=== PATIENT | male | born 1965 | race American Indian/Alaskan Native ===

== ENCOUNTER 2018-08-16 01:19 | Inpatient (IN) | payer MEDICAID ==
[2018-08-16 01:25] VITALS: BMI 31.4
[2018-08-16 01:34] VITALS: O2SAT 98
--- NOTE | 2018-08-16 04:11 | PCM.BM ---
<Bret Alcantar - Last Filed: 08/16/18 04:08> Treatment Plan Problems - Problems identified on initial assessmt Auditory Hallucinations Date Initiated: 08/16/18 Time Initiated: 04:09 Assessment reference: NA Status: Active Hopelessness/Helplessness Date Initiated: 08/16/18 Time Initiated: 04:09 Assessment reference: NA Status: Active Ineffective Coping Date Initiated: 08/16/18 Time Initiated: 04:09 Assessment reference: NA Status: Active Altered Sleep Patterns Date Initiated: 08/16/18 Time Initiated: 04:10 Assessment reference: NA Status: Active Social Isolation Date Initiated: 08/16/18 Time Initiated: 04:10 Assessment reference: NA Status: Active Treatment assets and liabiliti Patient Assests: adapts well, cooperative, insightful, ADL independent, negotiates basic needs, cognitively intact Patient Liabilities: live alone, financial problems, poor support system, substance abuse, medical problems - Milieu Protocol Maintain good personal hygiene: daily Encourage regular showers, daily Remind patient to perform daily oral care, daily Assist patient to perform ADL's Conduct patient checks and document Observation sheet: Q15 minutes Maintain personal safety: every shift Educate patient to report safety concerns to staff, every shift Monitor environment for contraband/sharps Medication safety: Monitor for expected outcome, potential side effects: every shift, Assess barriers to learning: every shift, Assess readiness for medication education: every shift Discharge/Continuing Care - Education Needs Education Needs: Patient Medication, Patient Diagnosis/Disease Process, Patient Coping Skills, Patient Community resources, Patient Activities of Daily Living, Patient Nutrition, Patient Health Practices/Safety, Patient Personal Hygiene/Grooming, Patient Aftercare Safety Plan - Discharge Discharge Criteria: Tolerates medication w/o severe side effects, Free of Suicidal thoughts, Free of paranoid thoughts, Normal sleep pattern, Ability to care for self, No longer exhibiting s/s of withdrawal, Reduction of target symptoms <Khadra Dudley - Last Filed: 08/16/18 14:08> - Diagnosis (1) Schizoaffective disorder Status: Acute Interventions: 08/16/18 14:08 Psychoeducation/psychotherapy Psychopharmacology/adjustment of medications as needed/ monitoring possible side effects Evaluate pt on daily basis Compliance with medications and follow up appointments Long acting medication if pt is noncompliant with pill form Suicide and homicide risk assessment and prevention, coping strategies, safety plan Relapse prevention Reduction of symptoms Improve functional status Possible assertive community treatment Cognitive behavioral therapy Family involvement Possible social skill training as outpatient (2) Alcohol use disorder Status: Acute Interventions: 08/16/18 14:08 Monitoring withdrawal symptoms Medical detoxification Pharmacotherapy for alcohol/benzos/opioid dependence Maintaining sobriety Relapse prevention Possible rehabilitation Motivational interviewing 12-step programs: AA meetings (3) Sleep apnea Status: Acute Interventions: 08/16/18 14:09 pulmonology consult medical consult med management Lab work as needed (CBC, CMP, TSH, free T4, UA, Urine test for females as needed) CXR as needed EKG Physical therapy evaluation as needed <Farrah Velásquez - Last Filed: 08/16/18 16:21>
[2018-08-16 08:57] LABS: GLUCOSE,FASTING 110 mg/dL (65-110); HDL CHOLESTEROL 40 mg/dL (29-60)
[2018-08-16 09:09] LABS: LDL CHOLESTEROL 112 mg/dL (0-129)
--- NOTE | 2018-08-16 14:07 | PCM.PSYCH ---
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 History of Present Illness and Precipitating Events: 53 year old male presents to the ED for evaluation of suicidal ideation, alcohol withdrawal. Patient is noncompliant with his psych medications for the past 2 days. Patient reports his last drink was prior to come to the hospital, used marijuana as well "not that often". Patient does not have a specific plan,has been hospitalized at [facility] multiple times for psychiatry and detox admissions. Patient's last hospitalization was 05/2018. Patient was transferred to [facility] because [facility] did not have any beds available. Patient requires further evaluation and stabilization, observation, higher level of care. Patient was seen today at the treatment team meeting, patient presented with poor personal hygiene, has upper extremity tremors, was observed swelling. Fair ADLs. Patient reported that he started to hear voices, relapse on alcohol for the past 3 weeks and was drinking about 1/2 pint of alcohol daily. Patient reported that she was hearing voices, denied command type hallucinations, reported suicidal ideation with no clear plan. Patient presented to be guarded and paranoid. Patient denies ever being abused in his life. Past psychiatric history: More than 10 psychiatric admissions, patient reported suicidal attempt in [id number] by overdosing on pills, patient was in the ICU [facility], then was referred to the psychiatric inpatient unit. Prior to this hospitalization patient contacted his counselor from [facility] when when he was in distress. Patient reports seeing psychiatrist at [facility] outpatient mental health clinic. Patient reports smoking marijuana "not very often." Patient reports smoking 1/2 pk of cigarettes per day. Counseling provided, patient refused Nicotine patch. Patient reports having sleep apnea and uses a CPAP machine, as per staff patient was snoring loudly (will call pulmonology and MD consult) HTN, high cholesterol. Patient reports his goal is to "get better." Patient reports hx of emotional abuse. Family history is unknown pt was on the following medications: Abilify 30 mg daily Lipitor 20 mg daily BuSpar 10 mg 3 times daily Lexapro 20 mg daily Neurontin 300 mg 3 times a day Seroquel 500 mg at the nighttime as per patient he was in the process of tapering down off Seroquel and titrating up Abilify Flomax 0.4 mg at the nighttime Trazodone 100 mg at the nighttime This junior copywriter will add folic acid, multivitamins, thiamine Lab Results 08/16/18 08:00: TSH 3rd Generation 1.32 08/16/18 08:00: Fasting Glucose 110, Triglycerides 205 H, Cholesterol 177, LDL Cholesterol Direct 112, HDL Cholesterol 40 Vital Signs Temp Pulse Resp BP Pulse Ox 08/16/18 08:46 129/61 08/16/18 07:24 97.7 F 60 20 129/61 08/16/18 01:58 98.2 F 87 18 135/89 98 08/16/18 01:33 97.9 F 89 18 151/96 H 98 The patient failed the outpatient lower level of care: Yes Current Medications: Active Medications Generic Name Dose Route Start Last Admin Trade Name Freq PRN Reason Stop Dose Admin Amlodipine Besylate 10 mg 08/16/18 08:00 Norvasc PO DAILY LUPE Aripiprazole 30 mg 08/16/18 08:00 Abilify PO DAILY LUPE Protocol Atorvastatin Calcium 20 mg 08/16/18 08:00 Lipitor PO DAILY LUPE Buspirone HCl 10 mg 08/16/18 08:00 Buspar PO TID LUPE Protocol Escitalopram Oxalate 20 mg 08/16/18 08:00 Lexapro PO DAILY LUPE Gabapentin 300 mg 08/16/18 08:00 Neurontin PO TID LUPE Protocol Lorazepam 2 mg 08/16/18 02:29 08/16/18 02:52 Ativan PO 2 mg Q6 PRN Administration alcohol withdrawal symptoms Protocol Quetiapine Fumarate 500 mg 08/16/18 22:00 Seroquel PO HS LUPE Protocol Tamsulosin HCl 0.4 mg 08/16/18 22:00 Flomax PO HS LUPE Trazodone HCl 100 mg 08/16/18 02:29 08/16/18 02:52 Desyrel PO 100 mg HS PRN Administration Insomnia Trazodone HCl 100 mg 08/16/18 22:00 Desyrel PO HS LUPE Present on Admission - Present on Admission Any Indicators Present on Admission: No Review of Systems - Review of Systems Systems not reviewed;Unavailable: Acuity of Condition - Constitutional Constitutional: As Per HPI - EENT Eyes: As Per HPI Ears: As Per HPI Nose/Mouth/Throat: As Per HPI - Cardiovascular Cardiovascular: As Per HPI - Respiratory Respiratory: As Per HPI - Gastrointestinal Gastrointestinal: As Per HPI - Genitourinary Genitourinary: As Per HPI - Reproductive: Male Reproductive:Male: As Per HPI - Musculoskeletal Musculoskeletal: As Per HPI - Integumentary Integumentary: As Per HPI - Neurological Neurological: As Per HPI - Psychiatric Psychiatric: As Per HPI - Endocrine Endocrine: As Per HPI - Hematologic/Lymphatic Hematologic: As Per HPI Past Patient History - Past Psychiatric History Previous Treatment History: Inpatient Prior Professional Help: See HPI Prior Psychiatric Treatment: See HPI At what hospital: See HPI Duration: See HPI Nature of Treatment: See HPI Explanation of prior treatment: See HPI - PSYCHIATRIC Hx Anxiety: Yes Hx Bipolar Disorder: Yes Hx Depression: Yes Hx Schizophrenia: Yes Hx Substance Use: Yes - CARDIAC Hx Hypertension: Yes - PULMONARY Hx Sleep Apnea: Yes - NEUROLOGICAL Hx Seizures: Yes (from alcohol withdrawals) - RENAL Hx Chronic Kidney Disease: No - ENDOCRINE/METABOLIC Other/Comment: "pre diabetes" - HEMATOLOGICAL/ONCOLOGICAL Hx Blood Disorders: No - INTEGUMENTARY Hx Dermatological Problems: No - MUSCULOSKELETAL/RHEUMATOLOGICAL Hx Osteoarthritis: Yes - GASTROINTESTINAL Hx Diverticulitis: Yes Hx Gastritis: Yes - GENITOURINARY/GYNECOLOGICAL Hx Prostate Problems: Yes (BPH) - SURGICAL HISTORY Hx Surgeries: Yes Hx Cholecystectomy: Yes Hx Orthopedic Surgery: Yes - ANESTHESIA Hx Anesthesia: Yes - Medical/Surgical History Reviewed & confirmed: by al Meds Allergies/Adverse Reactions: Allergies Allergy/AdvReac Type Severity Reaction Status Date / Time No Known Allergies Allergy Verified 08/16/18 02:28 Mental Status Examination - Personal Presentation Personal Presentation: Looks stated age - Affect Affect: Flat - Motor Activity Motor Activity: Calm - Reliability in Providing Information Reliability in Providing Information: Poor, due to alteration in thoughts, Poor, due to altered mood - Speech Speech: Disorganized (mildly) - Mood Mood: Depressed, Anxious - Formal Thought Process Formal Thought Process: Hallucinations, Delusions, Paranoia - Hallucinations/Delusions Hallucinations: Auditory Delusions: Persecution - Obsessions/Compulsions Obsessions: None Compulsions: None - Cognitive Functions Orientation: Person, Place, Situation Sensorium: Alert Abstract Thinking: [place] Estimate of Intelligence: Below average Judgement: Intact, as evidence by: Insight regarding need for hospitalization - Risk Risk: Suicidal, Self-mutilation, Diminished functioning - Strength & Assets Inventory Strength & Assets Inventory: Cooperative (pt is not homeless, not agitated, good physical health) - Limitations Limitations: Living alone, Other (alcohol abuse/ dependence) Psychiatric Physical Exam - Physical Exam Reviewed and confirmed: Emergency Department Physical Exam Results - Vital Signs Recent Vital Signs: Last Vital Signs Temp 97.7 F 08/16/18 07:24 Pulse 60 08/16/18 07:24 Resp 20 08/16/18 07:24 BP 129/61 08/16/18 07:24 Pulse Ox 98 08/16/18 01:58 - EKG Data EKG Interpreted by: ER Physician DSM Plan - DSM 5 DSM 5 Diagnosis: Schizoaffective disorder Alcohol use disorder Rule out alcohol withdrawal Marijuana abuse - Recommended/Plan of Treatment Treatment Recommendations and Plan of Treatment: Milieu/structure/supportive therapy SW consultation for discharge plan and social issues Med management Abilify 30 mg daily resumed, with the plan to titrate it up Lipitor 20 mg daily BuSpar 10 mg 3 times daily resumed for anxiety Lexapro 20 mg daily resumed for depression and anxiety Neurontin 300 mg 3 times a day for mood stabilization Seroquel 500 mg at the nighttime as per patient he was in the process of tapering down off Seroquel and titrating up Abilify Flomax 0.4 mg at the nighttime Trazodone 100 mg at the nighttime for depression/ anxiety This junior copywriter will add folic acid, multivitamins, thiamine Family involvement Follow up on labs Will monitor closely Pt was educated about risk/benefits and alternatives of medications, coping strategies (safety plan, suicide prevention), relapse prevention, importance of follow up with psychiatrist and therapist, stay away from drugs/alcohol/smoking Projected ELOS: 7 days Prognosis: fair Discharge Plan and Discharge Criteria: pt will be less psychotic, will pose no imminent danger to self or others - Tobacco Cessation Tobacco Use Status for the last 30 days: Heavy User(>=5 cigs &/or cigars/pipes daily) Tobacco Use Treatment Practical Counseling Provided: Yes Tobacco Use Treatment FDA-Approved Cessation Medication Provided: No Reason for not providing: Patient refused tobacco cessation medication - Alcohol or Substance Abuse Does the patient have an Alcohol or Substance Abuse Disorder: Yes Initial Psych Certification - Initial Certification I certify that the inpatient psychiatric facility admission was medically necessary for either: Treatment which could reasonbly be expected to improve pt's condition I estimate of hospitalization is necessary for proper treatment of the patient: 7 Unit of Time: Days My plans for post-hospital care for this patient are: Possible rehab, versus dual diagnosis program, AA meetings
[2018-08-16] MEDS: Multivitamin With Minerals Tab PO SCH (17:54)
--- NOTE | 2018-08-16 23:59 | ED PDOC ---
Arrival/HPI - General Chief Complaint: Psychiatric Evaluation Time Seen by Provider: 08/16/18 01:20 - History of Present Illness Narrative History of Present Illness (Text): 08/16/18 23:58 pt presents as transfer for [facility] admission from [facility], no medical complaint. Past Medical History - Cardiac Hx Hypertension: Yes - Pulmonary Hx Sleep Apnea: Yes - Neurological Hx Seizures: Yes (from alcohol withdrawals) - Renal Hx Renal Disorder: No - Endocrine/Metabolic Other/Comment: "pre diabetes" - Hematological/Oncological Hx Blood Disorders: No - Integumentary Hx Dermatological Disorder: No - Musculoskeletal/Rheumatological Hx Osteoarthritis: Yes - Gastrointestinal Hx Diverticulitis: Yes Hx Gastritis: Yes - Genitourinary/Gynecological Hx Prostate Problems: Yes (BPH) - Psychiatric Hx Anxiety: Yes Hx Bipolar Disorder: Yes Hx Depression: Yes Hx Schizophrenia: Yes Hx Substance Use: Yes - Surgical History Hx Cholecystectomy: Yes Hx Orthopedic Surgery: Yes - Anesthesia Hx Anesthesia: Yes - Suicidal Assessment Suicide Risk Precautions: None Family/Social History Family/Social History: Unknown Family HX Smoking Status: Light Smoker < 10 Cigarettes Daily Hx Alcohol Use: Yes Frequency of alcohol use: Daily Hx Substance Use: Yes Allergies/Home Meds Allergies/Adverse Reactions: Allergies No Known Allergies Allergy (Verified 08/16/18 02:28) Home Medications: Home Meds Medication Instructions Recorded Confirmed Aripiprazole [Abilify] 30 mg PO DAILY 08/16/18 08/16/18 Atorvastatin [Lipitor] 20 mg PO DAILY 08/16/18 08/16/18 Escitalopram [Lexapro] 20 mg PO DAILY 08/16/18 08/16/18 Gabapentin [Neurontin] 300 mg PO TID 08/16/18 08/16/18 Quetiapine Fumarate [Seroquel] 500 mg PO HS 08/16/18 08/16/18 Tamsulosin [Flomax] 0.4 mg PO HS 08/16/18 08/16/18 amLODIPine [Norvasc] 10 mg PO DAILY 08/16/18 08/16/18 busPIRone [Buspar] 10 mg PO TID 08/16/18 08/16/18 traZODone [Desyrel] 100 mg PO HS 08/16/18 08/16/18 traZODone [Desyrel] 100 mg PO HS PRN 08/16/18 08/16/18 Review of Systems - Review of Systems Constitutional: Normal Eyes: Normal ENT: Normal Respiratory: Normal Cardiovascular: Normal Gastrointestinal: Normal Genitourinary Male: Normal Musculoskeletal: Normal Skin: Normal Neurological: Normal Endocrine: Normal Hemo/Lymphatic: Normal Psychiatric: Normal Physical Exam Vital Signs Temp Pulse Resp BP Pulse Ox 08/16/18 01:33 97.9 F 89 18 151/96 H 98 Temperature: Afebrile Blood Pressure: Normal Pulse: Regular Respiratory Rate: Normal Appearance: Positive for: Well-Appearing, Non-Toxic, Comfortable Pain Distress: None Mental Status: Positive for: Alert and Oriented X 3 - Systems Exam Head: Present: Atraumatic, Normocephalic Pupils: Present: PERRL Extroacular Muscles: Present: EOMI Conjunctiva: Present: Normal Mouth: Present: Moist Mucous Membranes Neck: Present: Normal Range of Motion Respiratory/Chest: Present: Clear to Auscultation, Good Air Exchange. No: Respiratory Distress, Accessory Muscle Use Cardiovascular: Present: Regular Rate and Rhythm, Normal S1, S2. No: Murmurs Abdomen: No: Tenderness, Distention, Peritoneal Signs Back: Present: Normal Inspection Upper Extremity: Present: Normal Inspection. No: Cyanosis, Edema Lower Extremity: Present: Normal Inspection. No: Edema Neurological: Present: GCS=15, CN II-XII Intact, Speech Normal Skin: Present: Warm, Dry, Normal Color. 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 - Medication Orders Current Medication Orders: Amlodipine Besylate (Norvasc) 10 mg PO DAILY [facility] Last Admin: 08/16/18 08:46 Dose: 10 mg MAR Blood Pressure Document 08/16/18 08:46 [facility] (Rec: 08/16/18 08:54 [facility] [id number]) Blood Pressure Blood Pressure (100/60-150/90) 129/61 Aripiprazole (Abilify) 30 mg PO DAILY [facility]; Protocol Last Admin: 08/16/18 08:43 Dose: 30 mg Re-Assess: Reassess Psych Meds Document 08/16/18 09:43 [facility] (Rec: 08/16/18 15:49 [facility] [id number]) Reassess Psych Med Effective Atorvastatin Calcium (Lipitor) 20 mg PO DAILY [facility] Last Admin: 08/16/18 08:43 Dose: 20 mg Buspirone HCl (Buspar) 10 mg PO TID [facility]; Protocol Last Admin: 08/16/18 17:55 Dose: 10 mg Re-Assess: Reassess Psych Meds Document 08/16/18 18:55 [facility] (Rec: 08/16/18 19:18 [place] [id number]) Reassess Psych Med Effective Escitalopram Oxalate (Lexapro) 20 mg PO DAILY [facility] Last Admin: 08/16/18 08:44 Dose: 20 mg Folic Acid (Folic Acid) 1 mg PO DAILY [facility] Last Admin: 08/16/18 17:54 Dose: 1 mg Gabapentin (Neurontin) 300 mg PO TID [facility]; Protocol Last Admin: 08/16/18 17:55 Dose: 300 mg Re-Assess: Reassess Psych Meds Document 08/16/18 18:55 [facility] (Rec: 08/16/18 19:18 [place] [id number]) Reassess Psych Med Effective Lorazepam (Ativan) 2 mg PO Q6 PRN; Protocol PRN Reason: alcohol withdrawal symptoms Last Admin: 08/16/18 02:52 Dose: 2 mg Behavioural Document 08/16/18 02:52 KM (Rec: 08/16/18 02:53 KM [id number]) Nonmedicinal Nonmedicinal Interventions Redirect Therapeutic Communication Behavior Behavior for Medication: Anxiety Re-Assess: Reassess Psych Meds Document 08/16/18 03:52 KM (Rec: 08/16/18 04:12 KM [id number]) Reassess Psych Med Effective Lorazepam (Ativan) 2 mg PO Q6H [facility]; Protocol Last Admin: 08/16/18 20:37 Dose: 2 mg Behavioural Document 08/16/18 20:37 EN (Rec: 08/16/18 20:37 EN [id number]) Maintenance Maintenance Dose Yes Multivitamins/Minerals (Therapeutic-M Tab) 1 tab PO DAILY [facility] Last Admin: 08/16/18 17:54 Dose: 1 tab Quetiapine Fumarate (Seroquel) 500 mg PO HS [facility]; Protocol Last Admin: 08/16/18 21:08 Dose: 500 mg Behavioural Document 08/16/18 21:08 EN (Rec: 08/16/18 21:09 EN [id number]) Maintenance Maintenance Dose Yes Tamsulosin HCl (Flomax) 0.4 mg PO HS [facility] Last Admin: 08/16/18 21:08 Dose: 0.4 mg Thiamine HCl (Vitamin B1 Tab) 100 mg PO DAILY [facility] Last Admin: 08/16/18 17:55 Dose: 100 mg Trazodone HCl (Desyrel) 100 mg PO HS PRN PRN Reason: Insomnia Last Admin: 08/16/18 02:52 Dose: 100 mg Trazodone HCl (Desyrel) 100 mg PO HS [facility] Last Admin: 08/16/18 21:08 Dose: 100 mg Disposition/Present on Arrival - Present on Arrival Any Indicators Present on Arrival: No History of DVT/PE: No History of Uncontrolled Diabetes: No Urinary Catheter: No History of Decub. Ulcer: No History Surgical Site Infection Following: None - Disposition Have Diagnosis and Disposition been Completed?: Yes Diagnosis: Schizoaffective disorder Disposition: HOSPITALIZED Disposition Time: 16:00 Patient Problems: Current Active Problems Problem Status Onset Schizoaffective disorder Acute Alcohol use disorder Acute Sleep apnea Acute Condition: STABLE
[2018-08-17 07:42] LABS: MEAN CELL VOLUME 83.4 fl (80.0-105.0); MEAN CORPUSCULAR HEMOGLOBIN 25.1 pg (25.0-35.0); MEAN CORPUSCULAR HGB CONC 30.1 g/dl (31.0-37.0); MEAN PLATELET VOLUME 10.3 fl (7.0-11.0); RBC 5.18 10^6/uL (3.5-6.1); RED CELL DISTRIBUTION WIDTH 13.3 % (11.5-14.5); WHITE BLOOD COUNT 8.3 10^3/uL (4.5-11.0)
[2018-08-17 07:56] LABS: ALB/GLOB RATIO 1.1 (1.1-1.8); ALBUMIN 4.1 g/dL (3.0-4.8); ALT/SGPT 8 U/L (7-56); AST/SGOT 19 U/L (17-59); BLOOD UREA NITROGEN 9 mg/dL (7-21); CALCIUM 8.9 mg/dL (8.4-10.5); GFR NON-AFRICAN AMERICAN > 60
--- NOTE | 2018-08-17 09:21 | PCM.PYCHPN ---
Psychiatric Progress Note - Psychiatric Progress Note Patient seen today, length of contact: 25 min Problems Identified/Issues Discussed: Patient is a 53 year old male who was transferred to [facility] after presenting to [facility] ED with suicidal ideation and alcohol withdrawal. Patient reported that he started to hear voices, relapsed on alcohol for the past 3 weeks and was drinking about 1/2 pint of alcohol daily. Patient was noncompliant with his psych medications for the 2 days prior to admission and reported that his last drink was before coming to the hospital. Patient also infrequently smokes marijuana. Patient has been hospitalized at [facility] multiple times for psychiatry and detox admissions. Patient's last hospitalization was 05/2018. Patient was transferred to [facility] because [facility] did not have any beds available. I reviewed recent notes and patient appears to improving slowly. He spends a lot of time in his room and still doesn't appear motivated to socialize or engage. His affect is sleepy, guarded and constricted during my introduction and questioning. Today he denies having any hallucinations but admits hearing voices "a few days ago". This is consistent with recent staff notes which describe patient's hallucinations as indistinct voices in a mall . Patient has been in control on the unit. He snores very loudly and will also involuntarily snore/snort at times during our conversation. Presently he denies any new concerns, discomfort or pain. States "the meds are working fine" and indicates he slept well last night. Diagnostic Results: Schizoaffective disorder Alcohol use disorder Rule out alcohol withdrawal Marijuana abuse Medication Change: No Medical Record Reviewed: Yes Mental Status Examination - Cognitive Function Orientation: Person, Place, Situation Attention: Poor Concentration: Poor Association: WNL Fund of Knowledge: Poor - Mood Mood: Depressed, Anxious - Affect Affect: Constricted, Flat - Speech Speech: Appropriate - Formal Thought Process Formal Thought Process: Hallucinations (denies currently ), Delusions, Paranoia - Suicidal Ideation Suicidal Ideation: No - Homicidal Ideation Homicidal Ideation: No Goal/Treatment Plan - Goal/Treatment Plan Progress Toward Problem(s) and Goals/Treatment Plan: * group, milieu and supportive tx * Titrate Abilify 30 mg po daily as Seroquel is being tapered from 500 mg po HS * Buspar 10 mg po TID * Lexapro 20 mg po daily * Neurontin 300 mg po TID * Ativan 2 mg po q6, taper as tolerated * Trazodone 100 mg po HS and 100 mg po HS prn * Patient reports smoking 1/2 pk of cigarettes per day. Counseling provided, patient refused Nicotine patch. * Vitals reviewed and noted below: Selected Entries 08/16/18 08/16/18 07:24 16:00 Temperature 97.7 F Pulse Rate 60 88 Respiratory 20 Rate Blood Pressure 129/61 135/87 * New weekend labs noted thus far Laboratory Results - last 24 hr 08/16/18 08/16/18 08/17/18 08:00 08:00 07:00 WBC 8.3 RBC 5.18 Hgb 13.0 L Hct 43.2 MCV 83.4 MCH 25.1 MCHC 30.1 L RDW 13.3 Plt Count 285 MPV 10.3 Sodium Potassium Chloride Carbon Dioxide Anion Gap BUN Creatinine Est GFR ( Amer) Est GFR (Non-Af Amer) Random Glucose Calcium Total Bilirubin AST ALT Alkaline Phosphatase Total Protein Albumin Globulin Albumin/Globulin Ratio TSH 3rd Generation 1.32 RPR Nonreactive 08/17/18 07:00 WBC RBC Hgb Hct MCV MCH MCHC RDW Plt Count MPV Sodium 142 Potassium 3.8 Chloride 106 Carbon Dioxide 28 Anion Gap 11 BUN 9 Creatinine 1.0 Est GFR ( Amer) > 60 Est GFR (Non-Af Amer) > 60 Random Glucose 117 H Calcium 8.9 Total Bilirubin 0.4 AST 19 ALT 8 Alkaline Phosphatase 76 Total Protein 7.6 Albumin 4.1 Globulin 3.6 Albumin/Globulin Ratio 1.1 TSH 3rd Generation RPR
[2018-08-17] MEDS: Multivitamin With Minerals Tab PO SCH (09:34)
[2018-08-17] MEDS ORDERED: Albuterol HFA 90 mcg/actuation (8 g) IH PRN (10:24)
--- NOTE | 2018-08-17 11:32 | CON ---
DATE: 08/17/2018 PULMONARY CONSULT NOTE REFERRING PHYSICIAN: Dr. Khadra Dudley. REASON FOR CONSULT: Sleep apnea. HISTORY OF PRESENT ILLNESS: This is a 53-year-old male, with past medical history significant for hypertension, high cholesterol and suicidal attempt in 2007. The patient was transferred to [facility] from [facility] due to unavailability of beds at [facility]. The patient present to the emergency department for evaluation of suicidal ideation, alcohol withdrawal and noncompliance with psychiatric medication. The patient reports that he was diagnosed with sleep apnea about five months ago, states that he uses CPAP machine at 15 cm pressure. PAST MEDICAL HISTORY: As per history of present illness. ALLERGIES: NO KNOWN ALLERGIES. SOCIAL HISTORY: Smoker, half a pack per day. Positive ETOH abuse. Reports smoking marijuana. FAMILY HISTORY: No cardiopulmonary disease reported. MEDICATIONS: Reviewed. Norvasc 10 mg daily, Abilify 30 mg p.o. daily, Lipitor 20 mg daily, BuSpar 10 mg three times a day, Lexapro 20 mg daily, folic acid 1 mg daily, Neurontin 300 mg three times a day, Ativan 2 mg p.o. every 6 hours p.r.n., Ativan 2 mg p.o. every 6 hours, multivitamin and minerals 1 tab daily, Seroquel 500 mg at bedtime, Flomax 0.4 mg at bedtime, thiamine 100 mg daily, trazodone 100 mg at bedtime p.r.n. and trazodone 100 mg p.o. at bedtime. REVIEW OF SYSTEMS: No headaches, rhinitis, cough, shortness of breath, chest pain, abdominal pain, nausea, vomiting, leg pain, leg swelling, diarrhea. Reports snoring, daytime hypersomnia. PHYSICAL EXAMINATION: GENERAL: No acute distress. VITAL SIGNS: Blood pressure 128/78, pulse 84, temperature 97.7, and oxygen saturation 98% on room air. HEENT: Moist mucous membranes. Mallampati score of 4. Crowded airway. NECK: Supple. No JVD. RESPIRATORY: Clear bilaterally. CARDIOVASCULAR: S1 and S2. ABDOMEN: Soft and nontender. No distention. No organomegaly. EXTREMITIES: No bilateral lower extremity edema. NEUROLOGIC: Awake, alert and verbal. Following commands. LABORATORY DATA: Reviewed. WBC 8.3, RBC 5.18, hemoglobin 13, hematocrit 43.2 and platelets 285. Sodium 142, potassium 3.8, chloride 106, carbon dioxide 28, anion gap 11, BUN 9, creatinine 1.0, GFR is greater than 60, random glucose 117, calcium 8.9, total bilirubin 0.4, AST 19, ALT 8, alkaline phosphatase 76, total protein 7.6, albumin 4.1, globulin 3.6 and albumin-globulin ration 1.1. Triglycerides 205, cholesterol 177, LDL cholesterol, HDL cholesterol 40 and TSH 1.32. RPR nonreactive. IMPRESSION AND PLAN: Obstructive sleep apnea, hypertension, high cholesterol and suicidal ideation. We will place the patient on nicotine patch 14 mg daily. We will place the patient on Ventolin HFA 2 puffs every 4 hours as needed for shortness of breath. We will start the patient on continuous positive airway pressure 15 cm a bedtime for sleep apnea syndrome. The patient will need full pulmonary function test as outpatient to evaluate chronic lung disease. Sleep apnea precaution, head of bed elevated at [address] the patient on Protonix for gastric prophylaxis. The patient refused nicotine patch. This patient was seen and examined with Dr. Zamora. Discussed assessment and plan as described above. This patient was seen and examined with Edwin Maciel, nurse practitioner. Discussed assessment and plan as described above. Thank you for this consult and We will follow with you. Edwin Maciel APN Faraz Zamora MD [facility]
--- NOTE | 2018-08-17 16:03 | PN ---
DATE: 08/17/2018 SUBJECTIVE: I saw him resting comfortably in his room. He slept well. He is alert. He is comfortable. No complaints. He has a little bit of an appetite, says he is feeling a little bit better. He is on Abilify, Ativan, BuSpar, Desyrel, Flomax, folic acid, Lexapro, Lipitor, Neurontin, Norvasc, Protonix, Seroquel, , Ventolin, and vitamin B1. PHYSICAL EXAMINATION: VITAL SIGNS: He has a 97.7 temperature, 84 pulse, 120/70 blood pressure, and 16 respiratory rate. HEENT: His head is atraumatic, normocephalic. HEART: Regular rate. LUNGS: Clear to auscultation. ABDOMEN: Soft, obese. EXTREMITIES: No edema. LABORATORY DATA: He has 8.3 white count, 13 hemoglobin, 43.2 hematocrit with 285 platelets. He has a 142 sodium, potassium 3.8, BUN is 9, creatinine 1, GFR is greater than 60, sugar is 117, calcium is 8.9, total bili is 0.4, AST is 19, ALT is 8, alk phos 76, total protein 7.6, albumin is 4.1, triglycerides of 205, cholesterol is 177, TSH is 1.32, and the RPR is nonreactive. ASSESSMENT AND PLAN: We will continue with aggressive treatment and care on Didier Dolan. He had anxiety, depression, high cholesterol, hypertension, he was hearing voices, he has alcohol withdrawal, suicidal ideation and benign prostatic hyperplasia. We will follow. Noel Florentino DO MTDGiovanny
[2018-08-17] MEDS: Pantoprazole 40 mg EC Tab PO SCH (21:17)
--- NOTE | 2018-08-18 09:18 | PN ---
DATE: 08/18/2018 PULMONARY PROGRESS NOTE: REFERRING PHYSICIAN: Dr. Khadra Dudley. SUBJECTIVE: Patient seen lying in bed, asleep, in no acute distress, reports wearing CPAP machine last night. Reports being tired this morning. No headache, rhinitis, cough, shortness of breath, chest pain, abdominal pain, nausea, vomiting, diarrhea, leg pain, or leg swelling is reported. OBJECTIVE: GENERAL: In no acute distress. VITAL SIGNS: Blood pressure 110/70, temperature 97.4, pulse 100. HEENT: Moist mucous membranes. Mallampati score of 4. Crowded airway. NECK: Supple. No JVD. RESPIRATORY: Clear bilaterally. CARDIOVASCULAR: S1 and S2. ABDOMEN: Soft and nontender. No distention. No organomegaly. EXTREMITIES: No bilateral lower extremity edema. NEUROLOGIC: Asleep, easily arousable, verbal, following commands. MEDICATIONS: Reviewed. Ventolin 2 puffs inhalation every 4 hours p.r.n., Norvasc 10 mg daily, Abilify 30 mg daily, Lipitor 20 mg daily, BuSpar 10 mg 3 times a day, Lexapro 20 mg daily, folic acid 1 mg daily, gabapentin 300 mg 3 times a day, Ativan 2 mg p.o. every 6 hours, multivitamin and minerals 1 tab daily, Protonix 40 mg at bedtime, Seroquel 500 mg at bedtime, Flomax 0.4 mg at bedtime, vitamin B at 100 mg daily, trazodone 100 mg at bedtime. LABORATORY DATA: Reviewed. No new labs. IMPRESSION AND PLAN: Obstructive sleep apnea, hypertension, high cholesterol, and suicidal ideation. Continue CPAP use at bedtime. Sleep apnea precaution, head of bed elevated at 45 degrees. Continue Ventolin inhaler as needed for shortness of breath, gastric prophylaxis. careful with sedation. We recommend patient have full pulmonary function test as outpatient to evaluate chronic lung disease. Patient will also need follow up for sleep apnea syndrome. Patient was seen and examined with Dr. Zamora. Discussed assessment and plan as described above. Patient was seen and examined with Edwin Maciel, nurse practitioner. Discussed assessment and plan as described above. Thank you for this consult and we will follow with you. Edwin Maciel APN Faraz Zamora MD [facility] # [phone]
[2018-08-18] MEDS: Multivitamin With Minerals Tab PO SCH (09:23)
--- NOTE | 2018-08-18 09:31 | PCM.PYCHPN ---
Psychiatric Progress Note - Psychiatric Progress Note Patient seen today, length of contact: 25 min Problems Identified/Issues Discussed: Patient is a 53 year old male who was transferred to [facility] after presenting to [facility] ED with suicidal ideation and alcohol withdrawal. Patient reported that he started to hear voices, relapsed on alcohol for 3 weeks and was drinking about 1/2 pint of alcohol daily. He reported that his last drink was before coming to the hospital, also infrequently smokes marijuana. Patient was also noncompliant with his psych medications for the 2 days prior to admission Patient has been hospitalized at [facility] multiple times for psychiatry and detox admissions. Patient's last hospitalization was 05/2018. Patient was transferred to [facility] because [facility] did not have any beds available. I reviewed recent notes and patient appears to improving slowly. He spends a lot of time in his room and still doesn't appear motivated to socialize or engage. Today I was able to interview him in the day room. His affect is still sleepy, guarded and constricted during my questioning. Today he denies having any hallucinations but admitted to nursing on Sunday that he is still experiencing auditory hallucinations. Staff have also noted that patient can be confused and disoriented at times. He was looking for his money yesterday and was effectively reminded that his money was with security. Patient has been in control on the unit. He snores very loudly and has also involuntarily snore/snorted at times during our conversation. He uses a CPAP at night Presently he denies any new concerns, discomfort or pain. States "the meds are working fine" and indicates he slept well again last night. He is agreeable to further decrease of seroquel as abilify is titrated up. Diagnostic Results: Schizoaffective disorder Alcohol use disorder Rule out alcohol withdrawal Marijuana abuse Medication Change: Yes (seroquel and ativan decreased) Medical Record Reviewed: Yes Mental Status Examination - Cognitive Function Orientation: Person, Place, Situation Attention: Poor Concentration: Poor Association: WNL Fund of Knowledge: Poor - Mood Mood: Depressed (better), Anxious - Affect Affect: Constricted, Flat - Speech Speech: Appropriate - Formal Thought Process Formal Thought Process: Hallucinations (denies currently but has endorsed to staff ), Delusions, Paranoia - Suicidal Ideation Suicidal Ideation: No - Homicidal Ideation Homicidal Ideation: No Goal/Treatment Plan - Goal/Treatment Plan Progress Toward Problem(s) and Goals/Treatment Plan: * group, milieu and supportive tx * Appreciate f/u by Dr. Florentino on 08/17/18 * Appreciate f/u by Dr. Zamora/Edwin Maciel APN on 08/17/18 and 08/18/18 ~Placed patient on ventolin prn ~Patient refused nicotine patch ~Started CPAP, patient will need PFT as an outpatient to evaluate chronic lung disease ~Added protonix for gastric prophylaxis * Continue Abilify 30 mg po daily, Seroquel is being tapered and was decreased to 400 mg po HS on 08/18/18 * Buspar 10 mg po TID * Lexapro 20 mg po daily * Neurontin 300 mg po TID * Ativan 2 mg po q6 decreased to 2 mg po q8 on 08/18/18, taper as tolerated * Trazodone 100 mg po HS and 100 mg po HS prn * Patient reports smoking 1/2 pk of cigarettes per day. Counseling provided, patient refused Nicotine patch. * Vitals reviewed and noted below: Selected Entries 08/16/18 08/17/18 08/17/18 07:24 16:10 22:38 Temperature 97.7 F Pulse Rate 60 96 H 84 Respiratory 20 Rate Blood Pressure 129/61 133/84 119/84 * New weekend labs noted thus far Laboratory Results - last 24 hr 08/16/18 08/16/18 08/17/18 08:00 08:00 07:00 WBC 8.3 RBC 5.18 Hgb 13.0 L Hct 43.2 MCV 83.4 MCH 25.1 MCHC 30.1 L RDW 13.3 Plt Count 285 MPV 10.3 Sodium Potassium Chloride Carbon Dioxide Anion Gap BUN Creatinine Est GFR ( Amer) Est GFR (Non-Af Amer) Random Glucose Calcium Total Bilirubin AST ALT Alkaline Phosphatase Total Protein Albumin Globulin Albumin/Globulin Ratio TSH 3rd Generation 1.32 RPR Nonreactive 08/17/18 07:00 WBC RBC Hgb Hct MCV MCH MCHC RDW Plt Count MPV Sodium 142 Potassium 3.8 Chloride 106 Carbon Dioxide 28 Anion Gap 11 BUN 9 Creatinine 1.0 Est GFR ( Amer) > 60 Est GFR (Non-Af Amer) > 60 Random Glucose 117 H Calcium 8.9 Total Bilirubin 0.4 AST 19 ALT 8 Alkaline Phosphatase 76 Total Protein 7.6 Albumin 4.1 Globulin 3.6 Albumin/Globulin Ratio 1.1 TSH 3rd Generation RPR
--- NOTE | 2018-08-18 12:29 | PN ---
DATE: 08/18/2018 SUBJECTIVE: He is doing better with CPAP at night. He is sitting out of bed to chair, comfortable. No complaints. MEDICATIONS: He is on Abilify, Ativan, BuSpar, Desyrel, Flomax, folic acid, Lexapro, Lipitor, Motrin, Neurontin, Norvasc, Protonix, Seroquel, Tetratab, Bentyl and vitamin B1. PHYSICAL EXAMINATION: VITAL SIGNS: He has a 97.4 temperature, 84 pulse, 110/70 blood pressure, 20 respiratory rate. HEENT: Head is atraumatic, normocephalic. HEART: Regular rate. LUNGS: Decreased breath sounds, but clear. Poor inspiration. ABDOMEN: Soft, nontender, positive bowel sounds. Obese. EXTREMITIES: No edema. LABORATORY DATA: On the 08/17/2018 is very well. He is doing well in the psych floor. I do think he is improving. We will continue to follow. He had multiple issues anxiety, depression, a cholesterol, hypertension, positive tobacco, BPH, suicidal and I will follow medically as per psychiatry. Noel Florentino DO
[2018-08-18] MEDS: Pantoprazole 40 mg EC Tab PO SCH (21:30)
--- NOTE | 2018-08-19 08:37 | PCM.PYCHPN ---
Psychiatric Progress Note - Psychiatric Progress Note Patient seen today, length of contact: 25 min Problems Identified/Issues Discussed: Patient is a 53 year old male who was transferred to [facility] after presenting to [facility] ED with suicidal ideation and alcohol withdrawal. Patient reported that he started to hear voices, relapsed on alcohol for 3 weeks and was drinking about 1/2 pint of alcohol daily. He reported that his last drink was before coming to the hospital, also infrequently smokes marijuana. Patient was also noncompliant with his psych medications for the 2 days prior to admission Patient has been hospitalized at [facility] multiple times for psychiatry and detox admissions. Patient's last hospitalization was 05/2018. Patient was transferred to [facility] because [facility] did not have any beds available. I reviewed recent notes and patient appears to improving slowly. He is spending more time out of his room and paces/wanders around the unit. Patient is also demonstrating more initiative in engaging and communicating with others. Still a little aloof but he's warming up. Unfortunately patient is still demonstrating periods of confusion, forgetfulness and delusions/false memories. On Sunday he believed he made a plate of food (which he didnt). He was looking for his money Sunday and was effectively reminded that his money was with security. Today I interviewed patient in the hallway. He is nice, more related and talkative however he is disoriented. He has trouble remembering he's in a psychiatric unit and why he was hospitalized despite staff regularly reminding him. Today and yesterday (Sunday) he denied having any hallucinations but admitted to nursing on Sunday that he is still experiencing auditory hallucinations. Staff have also noted that patient can be confused and disoriented at times. Needs to be escorted back to his room because he cannot find it. I observed this multiple times this morning. Patient has been in control on the unit. He snores very loudly and has also involuntarily snore/snorted at times during our conversations. He uses a CPAP at night however keeps taking it off despite much education by staff. Respiratory therapist needed to be called to re-apply it last night. Presently he denies any new concerns, discomfort or pain. States "the meds are working fine" and indicates he slept "okay" last night however staff informed me that he was restless and slept poorly. Diagnostic Results: Schizoaffective disorder Alcohol use disorder Rule out alcohol withdrawal Marijuana abuse Medication Change: Yes ( ativan decreased) Medical Record Reviewed: Yes Mental Status Examination - Cognitive Function Orientation: Person, Place, Situation Attention: Poor Concentration: Poor Association: WNL Fund of Knowledge: Poor - Mood Mood: Depressed (better), Anxious - Affect Affect: Constricted, Flat - Speech Speech: Appropriate - Formal Thought Process Formal Thought Process: Hallucinations (denies currently but has endorsed to staff ), Delusions, Paranoia - Suicidal Ideation Suicidal Ideation: No - Homicidal Ideation Homicidal Ideation: No Goal/Treatment Plan - Goal/Treatment Plan Progress Toward Problem(s) and Goals/Treatment Plan: * group, milieu and supportive tx * Appreciate f/u by Dr. Florentino on 08/17/18 and 08/18/18 * Appreciate f/u by Dr. Zamora/Edwin ZULETAN on 08/17/18 and 08/18/18 ~Placed patient on ventolin prn ~Patient refused nicotine patch ~Started CPAP, patient will need PFT as an outpatient to evaluate chronic lung disease ~Added protonix for gastric prophylaxis * Continue Abilify 30 mg po daily, Seroquel is being tapered and was decreased to 400 mg po HS on 08/18/18. Will hold off on further decreases due to patient's restless sleep last night from 08/18/18- * Buspar 10 mg po TID * Lexapro 20 mg po daily * Neurontin 300 mg po TID * Ativan 2 mg po q6 decreased to 2 mg po q8 on 08/18/18 and then again to 1 mg po q8 on 08/19/18. Hopefully mental status (confusion, disorientation) will improve as ativan is tapered further * Trazodone 100 mg po HS and 100 mg po HS prn * Patient reports smoking 1/2 pk of cigarettes per day. Counseling provided, patient refused Nicotine patch. * Vitals reviewed and noted below: Selected Entries 08/18/18 08/18/18 08/18/18 07:10 16:16 23:23 Temperature 97.4 F L Pulse Rate 115 H 93 H 83 Respiratory 20 Rate Blood Pressure 110/70 134/88 * New weekend labs noted thus far Laboratory Results - last 24 hr 08/16/18 08/16/18 08/17/18 08:00 08:00 07:00 WBC 8.3 RBC 5.18 Hgb 13.0 L Hct 43.2 MCV 83.4 MCH 25.1 MCHC 30.1 L RDW 13.3 Plt Count 285 MPV 10.3 Sodium Potassium Chloride Carbon Dioxide Anion Gap BUN Creatinine Est GFR ( Amer) Est GFR (Non-Af Amer) Random Glucose Calcium Total Bilirubin AST ALT Alkaline Phosphatase Total Protein Albumin Globulin Albumin/Globulin Ratio TSH 3rd Generation 1.32 RPR Nonreactive 08/17/18 07:00 WBC RBC Hgb Hct MCV MCH MCHC RDW Plt Count MPV Sodium 142 Potassium 3.8 Chloride 106 Carbon Dioxide 28 Anion Gap 11 BUN 9 Creatinine 1.0 Est GFR ( Amer) > 60 Est GFR (Non-Af Amer) > 60 Random Glucose 117 H Calcium 8.9 Total Bilirubin 0.4 AST 19 ALT 8 Alkaline Phosphatase 76 Total Protein 7.6 Albumin 4.1 Globulin 3.6 Albumin/Globulin Ratio 1.1 TSH 3rd Generation RPR
[2018-08-19] MEDS: Multivitamin With Minerals Tab PO SCH (08:55)
--- NOTE | 2018-08-19 09:53 | CON ---
DATE: 08/16/2018 HISTORY OF PRESENT ILLNESS: I saw him in his room, in 513 on the psychiatric floor. He is a 53-year-old white man who has got suicidal ideation, alcohol abuse and withdrawal, noncompliant with his medications. He was drinking a lot. He has been to [facility] numerous times. He relapsed on his alcohol. He wants to end his life. He is a little bit guarded and paranoid, not taking his medications all the time. He has high triglycerides, high cholesterol, depression, chronic pain and BPH. Smoking and drinking. No acute vision or hearing changes. No chest pain. No palpitations. No shortness of breath or cough. No nausea, vomiting, constipation or diarrhea. No leg pains. No skin issues. He is definitely suicidal. PAST MEDICAL HISTORY: Depression, schizophrenia, substance abuse. He gets alcohol withdrawal seizures. He is prediabetic. He has got osteoarthritis, gastritis, diverticulitis, BPH. He has a cholecystectomy and orthopedic surgery. MEDICATIONS: He is supposed to be on amlodipine, Abilify, Lipitor, BuSpar, Lexapro, Neurontin, Ativan, Seroquel, Flomax, Desyrel. ALLERGIES: NO KNOWN DRUG ALLERGIES. PHYSICAL EXAMINATION: VITAL SIGNS: He has a 97.9 temperature, 89 pulse, 18 respiratory rate, 151/96 blood pressure that came down to 129/61 and 98% O2 sat. We will keep an eye on his blood pressure. HEENT: Head is atraumatic and normocephalic. Extraocular muscles intact. Throat is moist. NECK: Supple. No JVD. Thyroid is midline. No palpable appreciable lymphadenopathy. HEART: Regular rate. Normal S1 and S2. LUNGS: Decreased breath sounds. Poor inspiration, but clear to auscultation. No wheezes. No rhonchi or rales. ABDOMEN: Soft and nontender. Positive bowel sounds. Obese. EXTREMITIES: No edema. SKIN: As far as I could tell is intact. NEUROLOGIC: Alert and oriented x3. A little bit off mentally at this time. He could be coming down from his alcohol abuse. ASSESSMENT: He has got schizoaffective disorder, alcohol use disorder, rule out alcohol withdrawal, marijuana abuse, tobacco use, anxiety, depression, hypertension, high cholesterol, hearing voices, suicidal and benign prostatic hyperplasia. PLAN: We will watch him closely, check his labs. Hopefully he will improve with good psychiatric care. He is on Abilify, Ativan, BuSpar, Desyrel, Flomax, folic acid, Lexapro, Lipitor, Neurontin, Norvasc, Seroquel, and vitamins. Thank you for allowing me to participate in the care of Didier Dolan. Noel Florentino DO
--- NOTE | 2018-08-19 12:33 | PN ---
DATE: 08/19/2018 SUBJECTIVE: I saw him in the psychiatric floor. He is eating a lot. He said he had a triple portion of [place] toast and eggs and he has got a very good get appetite. He is on Abilify, Ativan, BuSpar, Desyrel, Flomax, folic acid, Lexapro, Lipitor, Motrin, Neurontin, Norvasc, Protonix, Seroquel, Thera-Tabs, Ventolin, and vitamin B1. He is comfortable, smiling, tells me he is feeling better. No complaints. PHYSICAL EXAMINATION: VITAL SIGNS: Temperature 97.8, 98 pulse, 125/87 blood pressure, 20 respiratory rate. HEAD: Atraumatic, normocephalic. HEART: Regular rate. LUNGS: Decreased breath sounds but clear. ABDOMEN: Soft, obese, nontender. EXTREMITIES: No edema. LABORATORY DATA: Last labs on 08/17/2018 and he did well except his triglycerides are 205. On that kind of a diet, it is not going to come down too much. TSH was good. RPR was negative. He is being seen by Psychiatry. He is improving. I asked him to watch a better diet, less sugar, less carbs. I do not think I am making headway with him on that and as per Psychiatry, we will follow medically. He is definitely improving. Noel Florentino DO
--- NOTE | 2018-08-19 18:43 | PN ---
DATE: 08/19/2018 PULMONARY PROGRESS NOTE REFERRING PHYSICIAN: . SUBJECTIVE: The patient seen this afternoon, lying in bed asleep, but easily arousable, no acute distress. No headaches, rhinitis, cough, shortness of breath, chest pain, abdominal pain, nausea, vomiting, diarrhea, leg pain, leg swelling reported. Nursing staff does report that the patient was repeatedly taking off CPAP machine last night. OBJECTIVE: VITAL SIGNS: Blood pressure 125/87, pulse 98, temperature 97.8. GENERAL: No acute distress. HEENT: Moist mucous membranes. Crowded airway. Mallampati score of 4. NECK: Supple. No JVD. LUNGS: bilaterally. CARDIOVASCULAR: S1 and S2. ABDOMEN: Soft and nontender. No distention. No organomegaly. EXTREMITIES: No bilateral lower extremity edema. NEUROLOGIC: Asleep, easily arousable, verbal. Following commands. MEDICATIONS: Reviewed. Ventolin HFA 2 puffs q. 4 hours p.r.n., Norvasc 10 mg daily, Abilify 30 mg daily, Lipitor 20 mg daily, BuSpar 10 mg three times a day, Lexapro 20 mg daily, folic acid 1 mg daily, gabapentin 300 mg three times a day, Motrin 800 mg every 8 hours p.r.n., Ativan 2 mg every 6 hours p.r.n., Ativan 1 mg every 8 hours, multivitamins and minerals one tab daily, Protonix 40 mg at bedtime, Seroquel 400 mg at bedtime, Flomax 0.4 mg at bedtime, vitamin B1 100 mg daily, trazodone 100 mg at bedtime p.r.n., trazodone 100 mg p.o. at bedtime. LABORATORY DATA: Revealed. No new labs. IMPRESSION AND PLAN: Obstructive sleep apnea syndrome, hypertension, high cholesterol, suicidal ideation. Continue to encourage CPAP use at bedtime, sleep apnea precaution, head of the bed elevated at 45 degrees. Continue Ventolin as needed for shortness of breath, gastric prophylaxis, fall precaution. Recommend the patient to have full pulmonary function tests as outpatient, sleep followup as outpatient for sleep apnea syndrome. The patient was seen and examined with Dr. Zamora. Discussed assessment and plan as described above. The patient was seen and examined with Edwin Maciel, nurse practitioner. Discussed assessment and plan as described above. Thank you for this consult. We will follow with you. Edwin Maciel APN Faraz Zamora MD
[2018-08-19] MEDS: Pantoprazole 40 mg EC Tab PO SCH (23:15)
--- NOTE | 2018-08-20 08:17 | PCM.PYCHPN ---
Psychiatric Progress Note - Psychiatric Progress Note Patient seen today, length of contact: 25 min Problems Identified/Issues Discussed: Patient is a 53 year old male who was transferred to [facility] after presenting to [facility] ED with suicidal ideation and alcohol withdrawal. Patient reported that he started to hear voices, relapsed on alcohol for 3 weeks and was drinking about 1/2 pint of alcohol daily. He reported that his last drink was before coming to the hospital, also infrequently smokes marijuana. Patient was also noncompliant with his psych medications for the 2 days prior to admission Patient has been hospitalized at [facility] multiple times for psychiatry and detox admissions. Patient's last hospitalization was 05/2018. Patient was transferred to [facility] because [facility] did not have any beds available. I reviewed recent notes and patient appears to improving slowly. He is spending more time out of his room and paces/wanders around the unit. Patient is also demonstrating more initiative in engaging and communicating with others. Still a little aloof but he's warming up. Unfortunately patient is still demonstrating periods of confusion, forgetfulness and delusions/false memories. On Sunday he believed he made a plate of food (which he didnt). He was looking for his money Sunday and was effectively reminded that his money was with security. Patient frequently needs to be escorted back to his room because he cannot find it. I observed this on multiple occasions Patient has been in control on the unit without aggression or agitation. He snores very loudly and has also involuntarily snore/snorted at times during our conversations. He was more compliant with CPAP last night and reports he slept better. Patient was still found, confused and wandering in the hallway around midnight, The night prior 08/19/18 he kept taking the CPAP off despite much education by staff and the respiratory therapist needed to be called to re-apply it. Today I interviewed patient in his room with medical student, Dr. López. Patient remains nice, more related and talkative however he is disoriented. He has trouble remembering he's in the [facility] unit and initially responds confidently that he is in [facility]. He is able to remember he is in [facility] when he is asked again a few minutes later. . Today patient admitted to feelings of depression and I agree with staff, he does appear sad sometimes on the unit. Patient also endorsed visual hallucinations of "seeing people that are not there". He has been intermittently endorsing wither visual or auditory hallucinations to me and the staff during this hospitalization. I have never observed him to respond to internal stimuli. Presently he denies any new concerns, discomfort or pain except for chronic knee and back pain, unchanged. Diagnostic Results: Schizoaffective disorder Alcohol use disorder Rule out alcohol withdrawal Marijuana abuse Medication Change: Yes ( ativan decreased) Medical Record Reviewed: Yes Mental Status Examination - Cognitive Function Orientation: Person, Place, Situation Attention: Poor Concentration: Poor Association: WNL Fund of Knowledge: Poor - Mood Mood: Depressed (better), Anxious - Affect Affect: Constricted, Flat - Speech Speech: Appropriate - Formal Thought Process Formal Thought Process: Hallucinations (denies currently but has endorsed to staff ), Delusions, Paranoia - Suicidal Ideation Suicidal Ideation: No - Homicidal Ideation Homicidal Ideation: No Goal/Treatment Plan - Goal/Treatment Plan Progress Toward Problem(s) and Goals/Treatment Plan: * group, milieu and supportive tx * Appreciate f/u by Dr. Florentino on 08/17/18, 08/18/18 and 08/19/18 * Appreciate f/u by Dr. Zamora/Edwin Prudence IMPLEMENTATION ANALYST on 08/17/18, 08/18/18 and 08/19/18 ~Placed patient on ventolin prn ~Patient refused nicotine patch ~Started CPAP and encourage use of CPAP, patient will need PFT as an outpatient to evaluate chronic lung disease, elevate bed to 45 degrees ~Added protonix for gastric prophylaxis * Continue Abilify 30 mg po daily, Seroquel is being tapered and was decreased to 400 mg po HS on 08/18/18. Will hold off on further decreases due to patient's restless sleep from 08/18/18- * Buspar 10 mg po TID * Lexapro 20 mg po daily * Neurontin 300 mg po TID * Ativan 2 mg po q6 decreased to 2 mg po q8 on 08/18/18 and then again to 1 mg po q8 on 08/19/18. This medication was further decreased to 1 mg po q12 on . Hopefully mental status (confusion, disorientation) will improve as ativan is tapered further * Trazodone 100 mg po HS and 100 mg po HS prn * Patient reports smoking 1/2 pk of cigarettes per day. Counseling provided, patient refused Nicotine patch. * Vitals reviewed and noted below: Selected Entries 08/19/18 08/19/18 07:19 16:00 Temperature 97.8 F Pulse Rate 98 H 90 Respiratory 20 Rate Blood Pressure 125/87 116/75 * New weekend labs noted thus far Laboratory Results - last 24 hr 08/16/18 08/16/18 08/17/18 08:00 08:00 07:00 WBC 8.3 RBC 5.18 Hgb 13.0 L Hct 43.2 MCV 83.4 MCH 25.1 MCHC 30.1 L RDW 13.3 Plt Count 285 MPV 10.3 Sodium Potassium Chloride Carbon Dioxide Anion Gap BUN Creatinine Est GFR ( Amer) Est GFR (Non-Af Amer) Random Glucose Calcium Total Bilirubin AST ALT Alkaline Phosphatase Total Protein Albumin Globulin Albumin/Globulin Ratio TSH 3rd Generation 1.32 RPR Nonreactive 08/17/18 07:00 WBC RBC Hgb Hct MCV MCH MCHC RDW Plt Count MPV Sodium 142 Potassium 3.8 Chloride 106 Carbon Dioxide 28 Anion Gap 11 BUN 9 Creatinine 1.0 Est GFR ( Amer) > 60 Est GFR (Non-Af Amer) > 60 Random Glucose 117 H Calcium 8.9 Total Bilirubin 0.4 AST 19 ALT 8 Alkaline Phosphatase 76 Total Protein 7.6 Albumin 4.1 Globulin 3.6 Albumin/Globulin Ratio 1.1 TSH 3rd Generation RPR - Smoking Cessation Smoking Cessation Initiated: No
[2018-08-20] MEDS: Multivitamin With Minerals Tab PO SCH (09:16)
--- NOTE | 2018-08-20 12:49 | PN ---
DATE: 08/20/2018 PULMONARY PROGRESS NOTE REFERRING PHYSICIAN: Khadra Dudley MD SUBJECTIVE: The patient is seen in room, no acute distress. Reports feeling well this morning. States that he wore CPAP machine last night. No headache, rhinitis, cough, shortness of breath, chest pain, abdominal pain, nausea, vomiting, diarrhea, leg pain, or leg swelling is reported. OBJECTIVE: VITAL SIGNS: Blood pressure 118/78, pulse 75, and temperature 98.1. GENERAL: No acute distress. HEENT: Moist mucous membranes. Crowded airway. Mallampati score of 4. NECK: Supple. No JVD. RESPIRATORY: Clear bilaterally. CARDIOVASCULAR: S1 and S2. ABDOMEN: Soft and nontender. No distention. No organomegaly. EXTREMITIES: No bilateral lower extremity edema. NEUROLOGIC: Awake, alert, verbal, and following commands. MEDICATIONS: Reviewed. Ventolin HFA 2 puffs inhalation every 4 hours p.r.n., Norvasc 10 mg daily, Abilify 30 mg daily, Lipitor 20 mg daily, BuSpar 10 mg three times a day, Lexapro 20 mg daily, folic acid 1 mg daily, Neurontin 300 mg three times a day, Motrin 800 mg every 8 hours p.r.n., Ativan 2 mg p.o. every 6 hours p.r.n., Ativan 1 mg p.o. every 12 hours, multivitamins with minerals one tablet daily, Protonix 40 mg at bedtime, Seroquel 400 mg at bedtime, Flomax 0.4 mg at bedtime, vitamin B1 of 100 mg daily, trazodone 100 mg at bedtime p.r.n., and trazodone 100 mg p.o. at bedtime. LABORATORY DATA: Reviewed. No new labs. IMPRESSION AND PLAN: Obstructive sleep apnea syndrome, hypertension, high cholesterol, and suicidal ideation. Continue to encourage continuous positive airway pressure use at bedtime, head of the bed elevated at 45 degrees, and sleep apnea precaution. Gastric prophylaxis and fall precaution. Continue Ventolin as needed for shortness of breath. We recommend this patient have full pulmonary function test as outpatient to evaluate for chronic lung disease. The patient will also need follow up as outpatient for sleep apnea syndrome. This patient was seen and examined with Dr. Zamora. Discussed assessment and plan as described above. This patient was seen and examined with Edwin Maciel, nurse practitioner. Discussed assessment and plan as described above. Thank you for this consult. We will follow with you. Edwin Maciel APN Faraz Zamora MD
--- NOTE | 2018-08-20 14:22 | PN ---
DATE: 08/20/2018 SUBJECTIVE: I saw him in the psychiatric floor. He is walking around. He is eating well. He is feeling better. Overall, he is improving he tells me. He is in good spirits. No complaints at this time. He came in with anxiety, depression, high cholesterol, hypertension, hearing voices. He had suicidal ideation and alcohol and now he is doing better. He is on Abilify, Ativan, BuSpar, Desyrel, Flomax, folic acid, Lexapro, Lipitor, Motrin, Neurontin, Norvasc, Protonix, Seroquel, Thera tabs, Ventolin, and vitamin B1. PHYSICAL EXAMINATION: VITAL SIGNS: He has a 98.1 temperature, 75 pulse, 118/78 blood pressure, 16 respiratory rate. HEENT: Head is atraumatic, normocephalic. HEART: Regular rate. LUNGS: Decreased breath sounds, fair effort. No wheezes, rhonchi, or rales. ABDOMEN: Soft, morbidly obese, nontender, positive bowel sounds. No guarding. No rebound. No CVA tenderness. EXTREMITIES: No edema. LABORATORY DATA: Last labs on 08/17/2018, he did well. ASSESSMENT AND PLAN: He is definitely, I believe, possibly back at his baseline. There was a consult with Pulmonary, possible sleep apnea. We will continue with the continuous positive airway pressure, and we will continue aggressive treatment and care as per Psychiatry. We will follow. Noel Florentino DO
[2018-08-20] MEDS: Pantoprazole 40 mg EC Tab PO SCH (21:38)
[2018-08-21] MEDS: Multivitamin With Minerals Tab PO SCH (09:29)
--- NOTE | 2018-08-21 10:45 | PCM.PYCHPN ---
Psychiatric Progress Note - Psychiatric Progress Note Patient seen today, length of contact: 25 min Problems Identified/Issues Discussed: Patient is a 53 year old male who was transferred to [facility] after presenting to [facility] ED with suicidal ideation and alcohol withdrawal. Patient reported that he started to hear voices, relapsed on alcohol for 3 weeks and was drinking about 1/2 pint of alcohol daily. He reported that his last drink was before coming to the hospital, also infrequently smokes marijuana. Patient was also noncompliant with his psych medications for the 2 days prior to admission Patient has been hospitalized at [facility] multiple times for psychiatry and detox admissions. Patient's last hospitalization was 05/2018. Patient was transferred to [facility] because [facility] did not have any beds available. I reviewed recent notes and patient appears to improving slowly. He is spending more time out of his room and paces/wanders around the unit. Patient is also demonstrating more initiative in engaging and communicating with others. Patient has been in control on the unit without aggression or agitation. He snores very loudly and has also involuntarily snore/snorted at times during our conversations. He was more compliant with CPAP the last 2 nights and reports he slept better. Staff and this provider observe that he seems that he seems Today I interviewed patient in his room again. Patient remains nice, more related and talkative however he is still unfocused and forgetful.. He has trouble remembering he's in the [facility] and initially responds that he is in [facility] despite being reminded several times of his location yesterday. Nonetheless his periods of confusion and disorientation are decreasing in frequency and intensity. Patient still admits to feelings of depression and I agree with staff, he does appear sad sometimes on the unit. Yesterday patient endorsed visual hallucinations of "seeing people that are not there" and he denies any hallucinations today. In general, patient intermittently endorses either visual or auditory hallucinations to me and the staff during this hospitalization. I have never observed him to respond to internal stimuli. Presently he denies any new concerns, discomfort or pain except for chronic knee and back pain, unchanged. Diagnostic Results: Schizoaffective disorder Alcohol use disorder Rule out alcohol withdrawal Marijuana abuse Medication Change: Yes ( ativan decreased) Medical Record Reviewed: Yes Mental Status Examination - Cognitive Function Orientation: Person, Place, Situation Attention: Poor (improving) Concentration: Poor (improving) Association: WNL Fund of Knowledge: Poor - Mood Mood: Depressed (better), Anxious - Affect Affect: Constricted, Flat - Speech Speech: Appropriate - Formal Thought Process Formal Thought Process: Hallucinations (denies currently but has endorsed to staff ), Delusions, Paranoia - Suicidal Ideation Suicidal Ideation: No - Homicidal Ideation Homicidal Ideation: No Goal/Treatment Plan - Goal/Treatment Plan Progress Toward Problem(s) and Goals/Treatment Plan: * group, milieu and supportive tx * Appreciate f/u by Dr. Florentino on 08/17/18, 08/18/18 and 08/19/18 * Appreciate f/u by Dr. Zamora/Edwin Maciel [employer] on 08/17/18, 08/18/18 and 08/19/18 ~Placed patient on ventolin prn ~Patient refused nicotine patch ~Started CPAP and encourage use of CPAP, patient will need PFT as an outpati ent to evaluate chronic lung disease, elevate bed to 45 degrees ~Added protonix for gastric prophylaxis * Continue Abilify 30 mg po daily, Seroquel is being tapered and was decreased to 400 mg po HS on 08/18/18, will decrease further to 350 mg po HS on 08/21/18. * Buspar 10 mg po TID * Lexapro 20 mg po daily * Neurontin 300 mg po TID * Ativan 2 mg po q6 decreased to 2 mg po q8 on 08/18/18 and then again to 1 mg po q8 on 08/19/18. This medication was further decreased to 1 mg po q12 on 08/20/18 and then to 1 mg HS on 08/21/18. Hopefully mental status (confusion, disorientation) will improve as ativan is tapered further * Trazodone 100 mg po HS and 100 mg po HS prn * Patient reports smoking 1/2 pk of cigarettes per day. Counseling provided, patient refused Nicotine patch. * Vitals reviewed and noted below: Selected Entries 08/20/18 08/20/18 08/20/18 07:00 09:17 16:00 Temperature 98.1 F Pulse Rate 75 91 H Respiratory 16 Rate Blood Pressure 118/78 118/78 142/83 * Prior weekend labs noted below: Laboratory Results - last 24 hr 08/16/18 08/16/18 08/17/18 08:00 08:00 07:00 WBC 8.3 RBC 5.18 Hgb 13.0 L Hct 43.2 MCV 83.4 MCH 25.1 MCHC 30.1 L RDW 13.3 Plt Count 285 MPV 10.3 Sodium Potassium Chloride Carbon Dioxide Anion Gap BUN Creatinine Est GFR ( Amer) Est GFR (Non-Af Amer) Random Glucose Calcium Total Bilirubin AST ALT Alkaline Phosphatase Total Protein Albumin Globulin Albumin/Globulin Ratio TSH 3rd Generation 1.32 RPR Nonreactive 08/17/18 07:00 WBC RBC Hgb Hct MCV MCH MCHC RDW Plt Count MPV Sodium 142 Potassium 3.8 Chloride 106 Carbon Dioxide 28 Anion Gap 11 BUN 9 Creatinine 1.0 Est GFR ( Amer) > 60 Est GFR (Non-Af Amer) > 60 Random Glucose 117 H Calcium 8.9 Total Bilirubin 0.4 AST 19 ALT 8 Alkaline Phosphatase 76 Total Protein 7.6 Albumin 4.1 Globulin 3.6 Albumin/Globulin Ratio 1.1 TSH 3rd Generation RPR
--- NOTE | 2018-08-21 13:39 | PN ---
DATE: 08/21/2018 SUBJECTIVE: I saw him in his room in the psychiatric floor. He is resting comfortably in bed. He slept well. He is eating well. He is taking his medications well. He is feeling much better overall. No complaints. He is on Abilify, Ativan, BuSpar, Desyrel, Flomax, folic acid, Lexapro, Lipitor, Motrin, Neurontin, Norvasc, Protonix, Seroquel, Thera-Tab, Ritalin, and vitamin B1. PHYSICAL EXAMINATION: VITAL SIGNS: He has a 97.1 temperature, 81 pulse, 120/85 blood pressure, 20 respiratory rate. HEENT: Head is atraumatic, normocephalic. HEART: Regular rate. LUNGS: Decreased breath sounds, but clear. ABDOMEN: Soft, obese, nontender. EXTREMITIES: No edema. ASSESSMENT AND PLAN: He is actually doing quite well. He is walking well. He is eating well. He is improving mentally. He is being seen also by Pulmonary, most probably obstructive sleep apnea. We will continue with aggressive treatment and care. Noel Florentino DO
--- NOTE | 2018-08-21 16:31 | PN ---
DATE: 08/21/2018 REFERRING PHYSICIAN: Khadra Dudley MD SUBJECTIVE: The patient is seen, ambulating in room, no acute distress. Reports wearing CPAP machine last night. No headache, rhinitis, cough, and shortness of breath, chest pain, abdominal pain, nausea, vomiting, diarrhea, leg pain or leg swelling reported at this time. OBJECTIVE: VITAL SIGNS: Blood pressure 128/85, pulse 81, temperature 97.1. GENERAL: No acute distress. HEENT: Moist mucous membranes. Crowded airway. Mallampati score of 4. NECK: Supple. No JVD. RESPIRATORY: Clear bilaterally. CARDIOVASCULAR: S1 and S2. ABDOMEN: Soft and nontender. No distension. No organomegaly. EXTREMITIES: Bilateral lower extremity edema. NEUROLOGICAL: Awake, alert and verbal. Following commands. MEDICATIONS: Reviewed. Albuterol or Ventolin HFA 2 puffs inhalation q.4 hours p.r.n., Norvasc 10 mg daily, Abilify 30 mg daily, Lipitor 20 mg daily, BuSpar 10 mg p.o. 3 times a day, Lexapro 20 mg daily, folic acid 1 mg daily, gabapentin 300 mg p.o. 3 times a day, Motrin 800 mg every 8 hours p.r.n., Ativan 2 mg p.o. every 6 hours p.r.n., Ativan 1 mg p.o. at bedtime, multivitamin with mineral one tab daily, Protonix 40 mg at bedtime, Seroquel 400 mg at bedtime, Flomax 0.4 mg at bedtime, thiamine 100 mg daily, trazodone 100 mg at bedtime p.r.n., trazodone 100 mg at bedtime. LABORATORY DATA: Reviewed. No new labs. IMPRESSION AND PLAN: Obstructive sleep apnea syndrome, hypertension, high cholesterol, suicidal ideations, schizoaffective disorder. Continue to encourage continuous positive airway pressure use at bedtime, sleep apnea precautions, had a bed elevated at 45 degrees, gastric prophylaxis, continue Ventolin as needed for shortness of breath. Continue psychiatry followup. Recommend the patient have full pulmonary function test as outpatient to evaluate for chronic lung disease. Recommend the patient have followup with outpatient for a sleep apnea syndrome. Careful with sedation. The patient was seen and examined with Dr. Zamora. Discussed assessment and plan as described above. The patient was seen and examined with Edwin Maciel, nurse practitioner. Discussed assessment and plan as described above. Thank you for this consult and we will follow with you. Edwin Maciel APN Faraz Zamora MD
[2018-08-21] MEDS: Pantoprazole 40 mg EC Tab PO SCH (21:28)
[2018-08-22] MEDS ORDERED: QUETIAPINE PO ONE (06:00)
[2018-08-22] MEDS: Multivitamin With Minerals Tab PO SCH (08:40)
--- NOTE | 2018-08-22 08:43 | PCM.PYCHPN ---
Psychiatric Progress Note - Psychiatric Progress Note Patient seen today, length of contact: 25 min Problems Identified/Issues Discussed: Patient is a 53 year old male who was transferred to [facility] after presenting to [facility] ED with suicidal ideation and alcohol withdrawal. Patient reported that he started to hear voices, relapsed on alcohol for 3 weeks and was drinking about 1/2 pint of alcohol daily. He reported that his last drink was before coming to the hospital, also infrequently smokes marijuana. Patient was also noncompliant with his psych medications for the 2 days prior to admission Patient has been hospitalized at [facility] multiple times for psychiatry and detox admissions. Patient's last hospitalization was 05/2018. Patient was transferred to [facility] because [facility] did not have any beds available. I reviewed recent notes and patient continues to improve slowly. He is spending more time out of his room and seems to be wandering less around the unit. Patient is also demonstrating more initiative in engaging and communicating with others. Today I interviewed patient in his room again. Patient remains nice, more related and talkative. He remembers his current location, month, year and circumstances correctly this morning. His periods of confusion and disorientation are decreasing in frequency and intensity. Patient still admits to feelings of depression and I agree with staff, he does appear sad sometimes on the unit. He denies hopelessness or SI. Patient denied any perceptual disturbance today. In general, patient intermittently endorses either visual or auditory hallucinations to me and the staff during this hospitalization. I have never observed him to respond to internal stimuli. Patient has been in control without aggression or agitation. He snores very loudly and has also involuntarily snore/snorted at times during our conversations. He was more compliant with CPAP the last 3 nights and reports he slept better. Presently he denies any new concerns, discomfort or pain except for chronic knee and back pain, unchanged. His behavior is becoming more predictable. Diagnostic Results: Schizoaffective disorder Alcohol use disorder Rule out alcohol withdrawal Marijuana abuse Medication Change: Yes ( ativan d/c'ed) Medical Record Reviewed: Yes Mental Status Examination - Cognitive Function Orientation: Person, Place, Situation Attention: Poor (improving) Concentration: Poor (improving) Association: WNL Fund of Knowledge: Poor - Mood Mood: Depressed (better), Anxious - Affect Affect: Constricted, Flat - Speech Speech: Appropriate - Formal Thought Process Formal Thought Process: Hallucinations (denies currently but has endorsed to staff ), Delusions, Paranoia - Suicidal Ideation Suicidal Ideation: No - Homicidal Ideation Homicidal Ideation: No Goal/Treatment Plan - Goal/Treatment Plan Progress Toward Problem(s) and Goals/Treatment Plan: * group, milieu and supportive tx * Appreciate f/u by Dr. Florentino on 08/17/18, 08/18/18, 08/19/18 and 08/20/18 * Appreciate f/u by Dr. Zamora/Edwin Maciel MACHINE TOOL ELECTRICIAN on 08/17/18, 08/18/18, 08/19/18, 08/20/18 ~Placed patient on ventolin prn ~Patient refused nicotine patch ~Started CPAP and encourage use of CPAP, elevate bed to 45 degrees; patient will need PFT as an outpatient to evaluate chronic lung disease, ~Added protonix for gastric prophylaxis * Continue Abilify 30 mg po daily, Seroquel is being tapered and was decreased to 400 mg po HS on 08/18/18, decreased further to 350 mg po HS on 08/21/18. * Buspar 10 mg po TID * Lexapro 20 mg po daily * Neurontin 300 mg po TID * Ativan 2 mg po q6 decreased to 2 mg po q8 on 08/18/18 and then again to 1 mg po q8 on 08/19/18. This medication was further decreased to 1 mg po q12 on 08/20/18 and then to 1 mg HS on 08/21/18. Ativan discontinued on 08/22/18. Hopefully mental status (confusion, disorientation) will further continue to improve s/p d/c * Trazodone 100 mg po HS and 100 mg po HS prn * Patient reports smoking 1/2 pk of cigarettes per day. Counseling provided, patient refused Nicotine patch. * Vitals reviewed and noted below: Selected Entries 08/21/18 08/21/18 08/21/18 07:13 11:15 16:00 Temperature 97.1 F L Pulse Rate 81 80 92 H Respiratory 20 Rate Blood Pressure 128/85 116/77 * Prior weekend labs noted below: Laboratory Results - last 24 hr 08/16/18 08/16/18 08/17/18 08:00 08:00 07:00 WBC 8.3 RBC 5.18 Hgb 13.0 L Hct 43.2 MCV 83.4 MCH 25.1 MCHC 30.1 L RDW 13.3 Plt Count 285 MPV 10.3 Sodium Potassium Chloride Carbon Dioxide Anion Gap BUN Creatinine Est GFR ( Amer) Est GFR (Non-Af Amer) Random Glucose Calcium Total Bilirubin AST ALT Alkaline Phosphatase Total Protein Albumin Globulin Albumin/Globulin Ratio TSH 3rd Generation 1.32 RPR Nonreactive 08/17/18 07:00 WBC RBC Hgb Hct MCV MCH MCHC RDW Plt Count MPV Sodium 142 Potassium 3.8 Chloride 106 Carbon Dioxide 28 Anion Gap 11 BUN 9 Creatinine 1.0 Est GFR ( Amer) > 60 Est GFR (Non-Af Amer) > 60 Random Glucose 117 H Calcium 8.9 Total Bilirubin 0.4 AST 19 ALT 8 Alkaline Phosphatase 76 Total Protein 7.6 Albumin 4.1 Globulin 3.6 Albumin/Globulin Ratio 1.1 TSH 3rd Generation RPR
--- NOTE | 2018-08-22 11:09 | PN ---
DATE: 08/22/2018 PULMONARY PROGRESS NOTE REFERRING PHYSICIAN: Khadra Dudley MD SUBJECTIVE: The patient is seen lying in bed. Asleep easily aroused. No acute distress. Reports wearing CPAP machine last night. No headache, rhinitis, cough, shortness of breath, chest pain, abdominal pain, nausea, vomiting, diarrhea, leg pain, or leg swelling reported. OBJECTIVE: VITAL SIGNS: Blood pressure 113/74, pulse 71, and temperature 97.7. GENERAL: No acute distress. HEENT: Moist mucous membranes. Crowded airway. Mallampati score of 4. NECK: Supple. No JVD. RESPIRATORY: Clear bilaterally. CARDIOVASCULAR: S1 and S2. ABDOMEN: Soft and nontender. No distention. No organomegaly. EXTREMITIES: No bilateral lower extremity edema. NEUROLOGIC: Awake, alert and verbal. Following commands. MEDICATIONS: Reviewed. Ventolin HFA 2 puffs every 4 hours p.r.n., Norvasc 10 mg daily, Abilify 30 mg daily, Lipitor 20 mg daily, BuSpar 10 mg three times a day, Lexapro 20 mg daily, folic acid 1 mg daily, Neurontin 300 mg three times a day, Motrin 800 mg every 8 hours p.r.n., Ativan 2 mg every 6 hours p.r.n., multivitamins with minerals one tablet daily, Protonix 40 mg at bedtime, Seroquel 350 mg at bedtime, Flomax 0.4 mg at bedtime, vitamin B1 of 100 mg daily, trazodone 100 mg at bedtime p.r.n., and trazodone 100 mg at bedtime. LABORATORY DATA: Reviewed. No new labs. IMPRESSION AND PLAN: Obstructive sleep apnea syndrome, hypertension, suicidal ideation, schizoaffective disorder and high cholesterol. Continue sleep apnea precaution. Head of bed elevated at 45 degrees. Continue CPAP use at bedtime. Continue Ventolin as needed for shortness of breath. Gastric prophylaxis. Careful with sedation. Recommend the patient have full pulmonary function test as outpatient to evaluate for chronic lung disease. Recommend the patient to have followup as outpatient for sleep apnea syndrome. Continue psychiatric followup. This patient was seen and examined with Dr. Zamora. Discussed assessment and plan as described above. This patient was seen and examined with Edwin Maciel, nurse practitioner. Discussed assessment and plan as described above. Thank you for this consult and we will follow with you. Edwin Maciel APN Faraz Zamora MD ZOILA
--- NOTE | 2018-08-22 11:23 | PN ---
DATE: 08/22/2018 SUBJECTIVE: I saw him in the psychiatric floor, we took a walk. He is doing much better. He is feeling much better, less anxiety. He is eating well. Going to the bathroom well. No chest pain or shortness of breath. No abdominal pain. He is taking his medications. MEDICATIONS: , Abilify, Ativan, BuSpar, Desyrel, Flomax, folic acid, Lexapro, Lipitor, Motrin, Neurontin, Norvasc, Protonix, Thera-Tabs, Ventolin, and vitamin B1. PHYSICAL EXAMINATION: VITAL SIGNS: He has 97.4 temperature, 71 pulse, 115/74 blood pressure, 20 respiratory rate. ASSESSMENT AND PLAN: He is comfortable, not anxious. We had a nice walk and talk. He is improving. He is hoping to be discharged tomorrow, hope so. Last labs were in the 20s and he is very well. He had no complaints to me. I do think he is improved as per Psychiatry. He is also being seen by Pulmonary for his obstructive sleep apnea and hopefully he will follow up in the outpatient. He is improving, possible discharge tomorrow. Noel Florentino DO MTDD
[2018-08-22] MEDS: Pantoprazole 40 mg EC Tab PO SCH (21:48)
[2018-08-22] MEDS ORDERED: QUETIAPINE PO SCH (22:00)
[2018-08-23] MEDS: Multivitamin With Minerals Tab PO SCH (11:18)
--- NOTE | 2018-08-23 12:12 | PN ---
DATE: 08/23/2018 SUBJECTIVE: I saw him in the psychiatric floor. He is resting well. He is doing much better. He is eating much better. He is improving. MEDICATIONS: He is on Abilify, Ativan, BuSpar, Desyrel, Flomax, folic acid, Lexapro, Lipitor, Motrin, Neurontin, Norvasc, Protonix, Seroquel, Thera-Tabs, Ventolin and vitamins. PHYSICAL EXAMINATION: VITAL SIGNS: He has a 97.9 temperature, 87 pulse, 110/75 blood pressure, 20 respiratory rate. HEENT: Head is atraumatic, normocephalic. HEART: Regular rate. LUNGS: Decreased breath sounds, but clear. ABDOMEN: Soft, obese, nontender. EXTREMITIES: No edema. ASSESSMENT AND PLAN: He is quite pleasant, no complaints to me. He is doing well. He is eating well. Going to the bathroom well. He is taking his medications, participates in groups and he told he is going to go home on Sunday. I will follow. I think he is doing much better. He had anxiety, depression, suicidal ideation, alcohol issues, benign prostatic hyperplasia, hypertension, and obstructive sleep apnea. We will continue to watch him closely medically. Noel Florentino DO MTDD
--- NOTE | 2018-08-23 12:23 | PN ---
DATE: 08/23/2018 REFERRING PHYSICIAN: Khadra Dudley MD SUBJECTIVE: The patient seen lying in bed. No acute distress. No overnight events reported. Reports using CPAP machine last night. When he uses CPAP machine, it tends to dry him out. Reports that at home he has humidification added to CPAP. No headache, rhinitis, cough, shortness of breath, chest pain, abdominal pain, nausea, vomiting, diarrhea, leg pain, or leg swelling reported. OBJECTIVE: VITAL SIGNS: Blood pressure 110/75, pulse 87, and temperature 97.9. GENERAL: No acute distress. HEENT: Moist mucous membranes. Crowded airway. Mallampati score of 4. NECK: Supple. No JVD. RESPIRATORY: Clear bilaterally. CARDIOVASCULAR: S1 and S2. ABDOMEN: Soft and nontender. No distention. No organomegaly. EXTREMITIES: No bilateral lower extremity edema. NEUROLOGIC: Awake, alert and verbal. Following commands. MEDICATIONS: Reviewed. Ventolin HFA 2 puffs inhalation every 4 hours p.r.n., Norvasc 10 mg daily, Abilify 30 mg daily, Lipitor 20 mg daily, BuSpar 10 mg three times a day, Lexapro 20 mg daily, folic acid 1 mg daily, gabapentin 300 mg three times a day, Motrin 800 mg every 8 hours p.r.n., Ativan 2 mg every 6 hours p.r.n., multivitamins with minerals one tablet daily, Protonix 40 mg at bedtime, Seroquel 300 mg at bedtime, Flomax 0.4 mg at bedtime, thiamine 100 mg daily, trazodone 100 mg at bedtime p.r.n., and trazodone 100 mg at bedtime. LABORATORY DATA: Reviewed. No new labs. IMPRESSION AND PLAN: Obstructive sleep apnea syndrome, hypertension, schizoaffective disorder, high cholesterol, and suicidal ideation. Sleep apnea precaution. Head of bed elevated at 45 degrees. Continue to encourage CPAP use at bedtime. Continue as needed inhaled bronchodilators for shortness of breath. Gastric prophylaxis. We will add humidification to CPAP at bed time. Recommend the patient have full pulmonary function test as outpatient to evaluate chronic lung disease. Recommend the patient have followup as outpatient for sleep apnea syndrome. This patient was seen and examined with Dr. Zamora. Discussed assessment and plan as described above. This patient was seen and examined with Edwin Maciel, nurse practitioner. Discussed assessment and plan as described above. Thank you for this consult. We will follow with you. Edwin Maciel APN Faraz Zamora MD
--- NOTE | 2018-08-23 14:05 | PCM.PYCHPN ---
Psychiatric Progress Note - Psychiatric Progress Note Patient seen today, length of contact: 25 min Problems Identified/Issues Discussed: Patient is a 53 year old male who was transferred to [facility] after presenting to [facility] ED with suicidal ideation and alcohol withdrawal. Patient reported that he started to hear voices, relapsed on alcohol for 3 weeks and was drinking about 1/2 pint of alcohol daily. He reported that his last drink was before coming to the hospital, also infrequently smokes marijuana. Patient was also noncompliant with his psych medications for the 2 days prior to admission Patient has been hospitalized at [facility] multiple times for psychiatry and detox admissions. Patient's last hospitalization was 05/2018. Patient was transferred to [facility] because [facility] did not have any beds available. I reviewed recent notes and patient continues to improve. He is spending more time out of his room and there have been no reports of wandering behaviors in about 12-24 hours. He is also demonstrating more initiative in engaging and communicating with others. Patient likes to watch tv with other patients in the dayroom. Today I interviewed patient in his room again. Patient remains nice, more related and talkative. He remembers his current location, month, year and circumstances correctly again this morning. His periods of confusion and disorientation appear to be resolving. Patient still admits to feelings of depression and I agree with staff, he does appear sad sometimes on the unit. He denies hopelessness or SI. Patient denied any perceptual disturbance the past couple of days In general, patient intermittently endorses either visual or auditory hallucinations to me and the staff during this hospitalization. I have never observed him to respond to internal stimuli. Patient has been much more compliant with CPAP the last 4 nights and reports he slept better. Snoring also seems to be improving. Presently he denies any new concerns, discomfort or pain except for chronic knee and back pain, unchanged. His behavior is becoming more predictable. Patient has been in control without aggression or agitation. Diagnostic Results: Schizoaffective disorder Alcohol use disorder Rule out alcohol withdrawal Marijuana abuse Medication Change: Yes (seroquel decreased) Medical Record Reviewed: Yes Mental Status Examination - Cognitive Function Orientation: Person, Place, Situation Attention: Poor (improving) Concentration: Poor (improving) Association: WNL Fund of Knowledge: Poor - Mood Mood: Depressed (better), Anxious - Affect Affect: Constricted, Flat - Speech Speech: Appropriate - Formal Thought Process Formal Thought Process: Hallucinations (denies currently but has endorsed to staff ), Delusions, Paranoia - Suicidal Ideation Suicidal Ideation: No - Homicidal Ideation Homicidal Ideation: No Goal/Treatment Plan - Goal/Treatment Plan Need for Continued Stay: Other Progress Toward Problem(s) and Goals/Treatment Plan: * group, milieu and supportive tx * Appreciate f/u by Dr. Florentino on 08/17/18, 08/18/18, 08/19/18, 08/20/18, 08/22/18, 08/23/18 * Appreciate f/u by Dr. Zamora/Edwin Maciel AGRICULTURAL ECONOMICS TEACHER on 08/17/18, 08/18/18, 08/19/18, 08/20/18,08/22/18, 08/23/18 ~Placed patient on ventolin prn ~Patient refused nicotine patch ~Started CPAP and encourage use of CPAP, elevate bed to 45 degrees; patient will need PFT as an outpatient to evaluate chronic lung disease, ~Added protonix for gastric prophylaxis * Continue Abilify 30 mg po daily, Seroquel is being tapered and was decreased to 400 mg po HS on 08/18/18, decreased further to 350 mg po HS on 08/21/18 and then to 300 mg po HS on 08/23/18. Will c/w taper over the weekend. * Buspar 10 mg po TID * Lexapro 20 mg po daily * Neurontin 300 mg po TID * Ativan 2 mg po q6 decreased to 2 mg po q8 on 08/18/18 and then again to 1 mg po q8 on 08/19/18. This medication was further decreased to 1 mg po q12 on 08/20/18 and then to 1 mg HS on 08/21/18. Ativan discontinued on 08/22/18. Hopefully mental status (confusion, disorientation) will further continue to improve s/p d/c * Trazodone 100 mg po HS and 100 mg po HS prn * Patient reports smoking 1/2 pk of cigarettes per day. Counseling provided, patient refused Nicotine patch. * Vitals reviewed and noted below: Selected Entries 08/22/18 08/22/18 07:32 16:00 Temperature 97.4 F L Pulse Rate 71 92 H Respiratory 20 Rate Blood Pressure 113/74 114/77 * Prior weekend labs noted below: Laboratory Results - last 24 hr 08/16/18 08/16/18 08/17/18 08:00 08:00 07:00 WBC 8.3 RBC 5.18 Hgb 13.0 L Hct 43.2 MCV 83.4 MCH 25.1 MCHC 30.1 L RDW 13.3 Plt Count 285 MPV 10.3 Sodium Potassium Chloride Carbon Dioxide Anion Gap BUN Creatinine Est GFR ( Amer) Est GFR (Non-Af Amer) Random Glucose Calcium Total Bilirubin AST ALT Alkaline Phosphatase Total Protein Albumin Globulin Albumin/Globulin Ratio TSH 3rd Generation 1.32 RPR Nonreactive 08/17/18 07:00 WBC RBC Hgb Hct MCV MCH MCHC RDW Plt Count MPV Sodium 142 Potassium 3.8 Chloride 106 Carbon Dioxide 28 Anion Gap 11 BUN 9 Creatinine 1.0 Est GFR ( Amer) > 60 Est GFR (Non-Af Amer) > 60 Random Glucose 117 H Calcium 8.9 Total Bilirubin 0.4 AST 19 ALT 8 Alkaline Phosphatase 76 Total Protein 7.6 Albumin 4.1 Globulin 3.6 Albumin/Globulin Ratio 1.1 TSH 3rd Generation RPR
[2018-08-23] MEDS: Pantoprazole 40 mg EC Tab PO SCH (21:57)
[2018-08-24] MEDS: Multivitamin With Minerals Tab PO SCH (08:24)
--- NOTE | 2018-08-24 08:47 | PCM.PYCHPN ---
Psychiatric Progress Note - Psychiatric Progress Note Patient seen today, length of contact: 25 min Problems Identified/Issues Discussed: Patient is a 53 year old male who was transferred to [facility] after presenting to [facility] ED with suicidal ideation and alcohol withdrawal. Patient reported that he started to hear voices, relapsed on alcohol for 3 weeks and was drinking about 1/2 pint of alcohol daily. He reported that his last drink was before coming to the hospital, also infrequently smokes marijuana. Patient was also noncompliant with his psych medications for the 2 days prior to admission Patient has been hospitalized at [facility] multiple times for psychiatry and detox admissions. Patient's last hospitalization was 05/2018. Patient was transferred to [facility] because [facility] did not have any beds available. I reviewed recent notes and patient continues to demonstrate stable improvement. He is spending more time out of his room and there have been no reports of wandering behaviors x2 days. His periods of confusion and disorientation appear to be resolving. He is also demonstrating more initiative in engaging and communicating with others. Patient likes to watch tv with other patients in the dayroom. Patient is still depressed with constricted affect but fairly friendly and cooperative upon approach. He remains nice, more related and talkative during interviews. He remembers his current location, month, year and circumstances correctly again this morning. Patient denied any perceptual disturbance the 3-4 days In general, patient intermittently endorsed either visual or auditory hallucinations to me and the staff during this hospitalization. I have never observed him responding to internal stimuli. Patient has been much more compliant with CPAP the last 5 nights and reports he slept better. Snoring also seems to be improving. Presently he denies any new concerns, discomfort or pain except for chronic knee and back pain, unchanged. His behavior is becoming more predictable. Patient has been in control without aggression or agitation. Diagnostic Results: Schizoaffective disorder Alcohol use disorder Rule out alcohol withdrawal Marijuana abuse Medication Change: Yes (seroquel decreased) Medical Record Reviewed: Yes Mental Status Examination - Cognitive Function Orientation: Person, Place, Situation Attention: Poor (improving) Concentration: Poor (improving) Association: WNL Fund of Knowledge: Poor - Mood Mood: Depressed (better), Anxious - Affect Affect: Constricted, Flat - Speech Speech: Appropriate - Formal Thought Process Formal Thought Process: Hallucinations (denies currently but has endorsed to staff ), Delusions, Paranoia - Suicidal Ideation Suicidal Ideation: No - Homicidal Ideation Homicidal Ideation: No Goal/Treatment Plan - Goal/Treatment Plan Need for Continued Stay: Other Progress Toward Problem(s) and Goals/Treatment Plan: * group, milieu and supportive tx * Appreciate f/u by Dr. Florentino on 08/17/18, 08/18/18, 08/19/18, 08/20/18, 08/22/18, 08/23/18 * Appreciate f/u by Dr. Zamora/Edwin Maciel [employer] on 08/17/18, 08/18/18, 08/19/18, 08/20/18,08/22/18, 08/23/18 ~Placed patient on ventolin prn ~Patient refused nicotine patch ~Started CPAP and encourage use of CPAP, elevate bed to 45 degrees; patient will need PFT as an outpatient to evaluate chronic lung disease, ~Added protonix for gastric prophylaxis * Continue Abilify 30 mg po daily, Seroquel is being tapered and was decreased to 400 mg po HS on 08/18/18, decreased further to 350 mg po HS on 08/21/18 and then to 300 mg po HS on 08/23/18. Seroquel reduced to 250 mg today and then will be further decreased to 200 mg HS on 08/25/18. * Buspar 10 mg po TID * Lexapro 20 mg po daily * Neurontin 300 mg po TID * Ativan 2 mg po q6 decreased to 2 mg po q8 on 08/18/18 and then again to 1 mg po q8 on 08/19/18. This medication was further decreased to 1 mg po q12 on 08/20/18 and then to 1 mg HS on 08/21/18. Ativan discontinued on 08/22/18. Hopefully mental status (confusion, disorientation) will further continue to improve s/p d/c * Trazodone 100 mg po HS and 100 mg po HS prn * Patient reports smoking 1/2 pk of cigarettes per day. Counseling provided, patient refused Nicotine patch. * Vitals reviewed and noted below: Selected Entries 08/23/18 08/23/18 08/23/18 07:12 11:15 16:20 Temperature 97.9 F Pulse Rate 87 89 Respiratory 20 Rate Blood Pressure 110/75 112/72 115/76 Fraction of Inspired Oxygen (FIO2) 08/23/18 23:19 Temperature Pulse Rate Respiratory Rate Blood Pressure Fraction of 21 Inspired Oxygen (FIO2) * Prior weekend labs noted below: Laboratory Results - last 24 hr 08/16/18 08/16/18 08/17/18 08:00 08:00 07:00 WBC 8.3 RBC 5.18 Hgb 13.0 L Hct 43.2 MCV 83.4 MCH 25.1 MCHC 30.1 L RDW 13.3 Plt Count 285 MPV 10.3 Sodium Potassium Chloride Carbon Dioxide Anion Gap BUN Creatinine Est GFR ( Amer) Est GFR (Non-Af Amer) Random Glucose Calcium Total Bilirubin AST ALT Alkaline Phosphatase Total Protein Albumin Globulin Albumin/Globulin Ratio TSH 3rd Generation 1.32 RPR Nonreactive 08/17/18 07:00 WBC RBC Hgb Hct MCV MCH MCHC RDW Plt Count MPV Sodium 142 Potassium 3.8 Chloride 106 Carbon Dioxide 28 Anion Gap 11 BUN 9 Creatinine 1.0 Est GFR ( Amer) > 60 Est GFR (Non-Af Amer) > 60 Random Glucose 117 H Calcium 8.9 Total Bilirubin 0.4 AST 19 ALT 8 Alkaline Phosphatase 76 Total Protein 7.6 Albumin 4.1 Globulin 3.6 Albumin/Globulin Ratio 1.1 TSH 3rd Generation RPR
--- NOTE | 2018-08-24 14:40 | PN ---
DATE: 08/24/2018 SUBJECTIVE: I saw him in the psychiatric floor resting comfortably in bed. He is taking a nap. He is feeling better. He is taking his medications. He is eating well. He is walking well. The plan seems to be discharge on Sunday. He is on the same medications as of yesterday. No change. PHYSICAL EXAMINATION: VITAL SIGNS: He has a 97.9 temperature, 81 pulse. 115/70 blood pressure, 20 respiratory rate. HEENT: Head is atraumatic, normocephalic. HEART: Regular rate. LUNGS: Clear to auscultation. ABDOMEN: Soft, obese. EXTREMITIES: No edema. LABORATORY DATA: No new labs. ASSESSMENT AND PLAN: He is comfortable. He is improving as per Psychiatry. I think he did very well and responded very well. He also has a little bit of obstructive sleep apnea the outpatient and right now, he is definitely improving. He had anxiety, depression, suicidal ideation, high cholesterol, hypertension, and obstructive sleep apnea. We will follow. Noel Florentino DO MTDGiovanny
--- NOTE | 2018-08-24 16:26 | PN ---
DATE: 08/24/2018 PULMONARY PROGRESS NOTE REFERRING PHYSICIAN: Khadra Dudley MD SUBJECTIVE: He is lying bed unremarkable. Tolerated BIPAP well. No headache, rhinitis, leg pain or leg swelling. OBJECTIVE: VITAL SIGNS: Temp is 98, heart rate is 88, respiratory rate is 20 and blood pressure is 115/73. HEENT: Moist mucous membranes. Crowded airway. NECK: Supple. No JVD. LUNGS: Have fair airflow with few rhonchi. HEART: S1 and S2. ABDOMEN: Soft and nontender. No organomegaly. EXTREMITIES: No edema. NEUROLOGIC: Awake and alert. Follow simple commands. MEDICATIONS: He is on Abilify 30 mg daily, Ativan 2 mg every 6 hours p.r.n., BuSpar 10 mg three times a day, trazodone 100 mg at bedtime, also getting Flomax 0.4 mg at bedtime, folic acid 1 mg daily, Lexapro 20 mg daily, Lipitor 20 mg daily, Motrin p.r.n. basis, gabapentin 300 mg three times a day, Norvasc 10 mg daily, Protonix 40 mg daily, Seroquel 200 mg at bedtime, also on multivitamin, Ventolin HFA every 4 hours p.r.n. and vitamin B 100 mg daily. LABORATORY DATA: Reviewed and noted. No new labs available since yesterday. IMPRESSION AND PLAN: Obstructive sleep apnea syndrome, hypertension, schizoaffective disorder, hyperlipidemia and history of suicidal ideation. Pulmonary point of view, doing okay. Continue to encourage positive airway pressure use at bedtime, keep head at 45 degrees. Careful with sedation. Fall precaution. Psychiatry followup. Thank you and we will follow with you. Faraz Zamora MD
[2018-08-24] MEDS: Pantoprazole 40 mg EC Tab PO SCH (21:18)
[2018-08-25 07:33] VITALS: RESP 19
[2018-08-25] MEDS: Multivitamin With Minerals Tab PO SCH (08:26)
--- NOTE | 2018-08-25 08:46 | PCM.PYCHPN ---
Psychiatric Progress Note - Psychiatric Progress Note Patient seen today, length of contact: 25 min Problems Identified/Issues Discussed: Patient is a 53 year old male who was transferred to [facility] after presenting to [facility] ED with suicidal ideation and alcohol withdrawal. Patient reported that he started to hear voices, relapsed on alcohol for 3 weeks and was drinking about 1/2 pint of alcohol daily. He reported that his last drink was before coming to the hospital, also infrequently smokes marijuana. Patient was also noncompliant with his psych medications for the 2 days prior to admission Patient has been hospitalized at [facility] multiple times for psychiatry and detox admissions. Patient's last hospitalization was 05/2018. Patient was transferred to [facility] because [facility] did not have any beds available. I reviewed recent notes and patient continues to demonstrate stable improvement in focus, memory and orientation. He is spending more time out of his room and there have been no reports of wandering behaviors x3 days. His periods of confusion and disorientation appear to have resolved. He is also demonstrating more initiative in engaging and communicating with others but still generally keeps to himself. Patient likes to watch tv in the dayroom. Patient is still depressed with constricted affect but fairly friendly and cooperative upon approach. He remains nice, more related and talkative during interviews. He remembers his current location, month, year and circumstances correctly again this morning. Patient denied any perceptual disturbance the 4-5 days In general, patient intermittently endorsed either visual or auditory hallucinations to me and the staff during this hospitalization. I have never observed him responding to internal stimuli. Patient has been much more compliant with CPAP the last 5 nights and reports he is sleeping better during those nights however patient refused it last night indicating it makes his throat too dry. Snoring also seems to be improving. Presently he denies any new concerns, discomfort or pain except for chronic knee and back pain, unchanged. His behavior is becoming more predictable. Patient has been in control without aggression or agitation and will be stable for discharge on Sunday. Aware and agreeable to continued seroquel taper and d/c by his outpatient provider after discharge. Diagnostic Results: Schizoaffective disorder Alcohol use disorder Rule out alcohol withdrawal Marijuana abuse Medication Change: Yes (seroquel decreased) Medical Record Reviewed: Yes Mental Status Examination - Cognitive Function Orientation: Person, Place, Situation Attention: Poor (improving) Concentration: Poor (improving) Association: WNL Fund of Knowledge: Poor - Mood Mood: Depressed (better), Anxious - Affect Affect: Constricted, Flat - Speech Speech: Appropriate - Formal Thought Process Formal Thought Process: Hallucinations (denies currently but has endorsed to staff ), Delusions, Paranoia - Suicidal Ideation Suicidal Ideation: No - Homicidal Ideation Homicidal Ideation: No Goal/Treatment Plan - Goal/Treatment Plan Need for Continued Stay: Other Progress Toward Problem(s) and Goals/Treatment Plan: * group, milieu and supportive tx * Appreciate f/u by Dr. Florentino on 08/17/18, 08/18/18, 08/19/18, 08/20/18, 08/22/18, 08/23/18, 08/24/18~patient is improving * Appreciate f/u by Dr. Zamora/Edwin Maciel APN on 08/17/18, 08/18/18, 08/19/18, 08/20/18,08/22/18, 08/23/18, 08/24/18-from a pulmonary point of view, patient is doing okay ~Placed patient on ventolin prn ~Patient refused nicotine patch ~Started CPAP and encourage use of CPAP, elevate bed to 45 degrees; patient will need PFT as an outpatient to evaluate chronic lung disease, ~Added protonix for gastric prophylaxis * Continue Abilify 30 mg po daily, Seroquel is being tapered and was decreased to 400 mg po HS on 08/18/18, decreased further to 350 mg po HS on 08/21/18 and then to 300 mg po HS on 08/23/18. Seroquel reduced to 250 mg today and then will be further decreased to 200 mg HS on 08/25/18 * Buspar 10 mg po TID * Lexapro 20 mg po daily * Neurontin 300 mg po TID * Ativan 2 mg po q6 decreased to 2 mg po q8 on 08/18/18 and then again to 1 mg po q8 on 08/19/18. This medication was further decreased to 1 mg po q12 on 08/20/18 and then to 1 mg HS on 08/21/18. Ativan discontinued on 08/22/18. Hopefully mental status (confusion, disorientation) will further continue to improve s/p d/c * Trazodone 100 mg po HS and 100 mg po HS prn * Patient reports smoking 1/2 pk of cigarettes per day. Counseling provided, patient refused Nicotine patch. * Vitals reviewed and noted below: Selected Entries 08/24/18 08/24/18 07:16 16:00 Temperature 97.9 F Pulse Rate 81 92 H Respiratory 20 Rate Blood Pressure 115/73 109/70 * Prior weekend labs noted below: Laboratory Results - last 24 hr 08/16/18 08/16/18 08/17/18 08:00 08:00 07:00 WBC 8.3 RBC 5.18 Hgb 13.0 L Hct 43.2 MCV 83.4 MCH 25.1 MCHC 30.1 L RDW 13.3 Plt Count 285 MPV 10.3 Sodium Potassium Chloride Carbon Dioxide Anion Gap BUN Creatinine Est GFR ( Amer) Est GFR (Non-Af Amer) Random Glucose Calcium Total Bilirubin AST ALT Alkaline Phosphatase Total Protein Albumin Globulin Albumin/Globulin Ratio TSH 3rd Generation 1.32 RPR Nonreactive 08/17/18 07:00 WBC RBC Hgb Hct MCV MCH MCHC RDW Plt Count MPV Sodium 142 Potassium 3.8 Chloride 106 Carbon Dioxide 28 Anion Gap 11 BUN 9 Creatinine 1.0 Est GFR ( Amer) > 60 Est GFR (Non-Af Amer) > 60 Random Glucose 117 H Calcium 8.9 Total Bilirubin 0.4 AST 19 ALT 8 Alkaline Phosphatase 76 Total Protein 7.6 Albumin 4.1 Globulin 3.6 Albumin/Globulin Ratio 1.1 TSH 3rd Generation RPR
--- NOTE | 2018-08-25 12:52 | PN ---
DATE: 08/25/2018 SUBJECTIVE: I saw him in his room sleeping. He is resting comfortably. He ate breakfast well. He is in good spirits. He is waiting to going home tomorrow. He tells me, he will be discharge on Sunday. He has anxiety, depression, suicidal ideation, alcohol abuse, obstructive sleep apnea as per pulmonary, hypertension, BPH, high cholesterol. MEDICATIONS: He is on Abilify, Ativan, BuSpar, Desyrel, Flomax, folic acid, Lexapro, Lipitor, Motrin, Neurontin, Norvasc, Protonix, Seroquel, Thera-Tabs, Ventolin, and vitamins. PHYSICAL EXAMINATION: VITAL SIGNS: He has a 97.5 temperature, 88 pulse, 120/77 blood pressure, 19 respiratory rate. HEENT: Head is atraumatic and normocephalic. HEART: Regular rate. LUNGS: Decreased breath sounds, but clear. ABDOMEN: Soft, obese and nontender. EXTREMITIES: No edema. He is definitely improving. We discussed no more alcohol. He understands, I got him into trouble. He will take his medications. I hope he will do very well. Presently, he is improved, he is stable. He has had no complaints. He is eating and hopefully he will be discharged tomorrow as per Psychiatry. We will follow. Noel Florentino DO MTDD
--- NOTE | 2018-08-25 21:32 | PN ---
DATE: 08/25/2018 REFERRING PHYSICIAN: Khadra Dudley MD SUBJECTIVE: He is walking in the hallway, going to get his lunch tray. Night was unremarkable. Could not use CPAP because it was dry air. No nausea and vomiting, diarrhea, leg pain or leg swelling. OBJECTIVE: GENERAL: No acute distress. VITAL SIGNS: Temperature is 98, heart rate 51, respiratory rate is 20, blood pressure 133/86. HEENT: Moist mucous membranes. Crowded airway. Mallampatti score is 4. NECK: Supple. No JVD. LUNGS: Fair airflow with rhonchi. HEART: S1, S2. ABDOMEN: Soft, nontender. No organomegaly. EXTREMITIES: There is no edema. NEUROLOGIC: Awake and alert. Follows simple commands. MEDICATIONS: He is on Abilify 30 mg daily, Ativan 2 mg every 6 hours p.r.n., BuSpar 10 mg three times a day, trazodone 100 mg at bedtime, Flomax 0.4 mg daily, folic acid 1 mg daily, Lexapro 20 mg daily, Lipitor 20 mg daily, Motrin 800 mg every 8 hours, Neurontin 300 mg three times a day, Norvasc 10 mg daily, Protonix 40 mg daily, Seroquel 200 mg p.o. at bedtime, multivitamins daily, Ventolin HFA 2 puffs every 4 hours p.r.n. and multivitamin, which is vitamin B 100 mg daily. LABORATORY DATA: Reviewed, noted. No new lab is available. IMPRESSION AND PLAN: Obstructive sleep apnea syndrome, hypertension, schizoaffective disorder, hyperlipidemia, history of suicidal ideation in the past. Pulmonary point of view, doing okay. Case discussed with nursing staff, requested to call respiratory therapist to add humidification with CPAP. Keep head at 45 degrees. Careful with sedation. Fall precautions. Sleep apnea precautions. Thank you, and we will follow with you. Faraz Zamora MD
[2018-08-25] MEDS: Pantoprazole 40 mg EC Tab PO SCH (21:33)
[2018-08-26 06:57] VITALS: BP 128/82; PULSE 84; TEMP 97.4
--- NOTE | 2018-08-26 08:12 | PCM.PYCHDC ---
Mental Status Examination - Mental Status Examination Orientation: Person, Place, Situation Memory: Intact Mood: Neutral Affect: Constricted Speech: Appropriate Attention: WNL Concentration: WNL Association: WNL Fund of Knowledge: WNL Formal Thought Process: No Impairment Description of patient's judgement and insight: Improved and fair insight and judgement . Psychotic Thoughts and Behaviors: Patient denied perceptual disturbance including hallucinations or paranoia. Delusions were not elicited on day of discharge. Suicidal Ideation: No Current Homicidal Ideation?: No Discharge Summary - Discharge Note Reason for Hospitalization: Patient is a 53 year old male who was transferred to [facility] after presenting to [facility] ED with suicidal ideation and alcohol withdrawal. Patient reported that he started to hear voices, relapsed on alcohol for 3 weeks and was drinking about 1/2 pint of alcohol daily. He reported that his last drink was before coming to the hospital, also infrequently smokes marijuana. Patient was also noncompliant with his psych medications for the 2 days prior to admission Patient has been hospitalized at [facility] multiple times for psychiatry and detox admissions. Patient's last hospitalization was 05/2018. Patient was transferred to [facility] because [facility] did not have any beds available. Psychiatric History (includes Medical, Family, Personal Hx): See HPI Laboratory Data: Laboratory Tests 08/16/18 08/16/18 08/16/18 08:00 08:00 08:00 WBC RBC Hgb Hct MCV MCH MCHC RDW Plt Count MPV Sodium Potassium Chloride Carbon Dioxide Anion Gap BUN Creatinine Est GFR ( Amer) Est GFR (Non-Af Amer) Random Glucose Fasting Glucose 110 Calcium Total Bilirubin AST ALT Alkaline Phosphatase Total Protein Albumin Globulin Albumin/Globulin Ratio Triglycerides 205 H Cholesterol 177 LDL Cholesterol Direct 112 HDL Cholesterol 40 TSH 3rd Generation 1.32 RPR Nonreactive 08/17/18 08/17/18 07:00 07:00 WBC 8.3 RBC 5.18 Hgb 13.0 L Hct 43.2 MCV 83.4 MCH 25.1 MCHC 30.1 L RDW 13.3 Plt Count 285 MPV 10.3 Sodium 142 Potassium 3.8 Chloride 106 Carbon Dioxide 28 Anion Gap 11 BUN 9 Creatinine 1.0 Est GFR ( Amer) > 60 Est GFR (Non-Af Amer) > 60 Random Glucose 117 H Fasting Glucose Calcium 8.9 Total Bilirubin 0.4 AST 19 ALT 8 Alkaline Phosphatase 76 Total Protein 7.6 Albumin 4.1 Globulin 3.6 Albumin/Globulin Ratio 1.1 Triglycerides Cholesterol LDL Cholesterol Direct HDL Cholesterol TSH 3rd Generation RPR Consultations:: List each consultation separately and include: 1. Reason for request. 2. Findings. 3. Follow-up Consultations: * Appreciate f/u by Dr. Florentino on 08/17/18, 08/18/18, 08/19/18, 08/20/18, 08/22/18, 08/23/18, 08/24/18 and 08/25/18~patient is improving * Appreciate f/u by Dr. Zamora/Edwin Maciel BIOMEDICAL ENGINEERING TECHNICIAN on 08/17/18, 08/18/18, 08/19/18, 08/20/18,08/22/18, 08/23/18, 08/24/18 and 08/25/18-from a pulmonary point of view, patient is doing okay ~Placed patient on ventolin prn ~Patient refused nicotine patch ~Started CPAP and encourage use of CPAP, elevate bed to 45 degrees; patient will need PFT as an outpatient to evaluate chronic lung disease, ~Added protonix for gastric prophylaxis Summary of Hospital Course include:: 1. Description of specific treatment plan utilized for patients during their course of treatmen. 2. Summarize the time- course for resolution of acute symptoms and/or regressed behaviors. 3. Describe issues identified and worked on during hospitalization. 4. Describe medication utilized. 5. Describe medical problems identified and treated. 6. Reassessment of suicide risk Summary of Hospital Course: Patient is a 53 year old male who was transferred to [facility] after presenting to [facility] ED with suicidal ideation and alcohol withdrawal. Patient reported that he started to hear voices, relapsed on alcohol for 3 weeks and was drinking about 1/2 pint of alcohol daily. He reported that his last drink was before coming to the hospital, also infrequently smokes marijuana. Patient was also noncompliant with his psych medications for the 2 days prior to admission Patient has been hospitalized at [facility] multiple times for psychiatry and detox admissions. Patient's last hospitalization was 05/2018. Patient was transferred to [facility] because [facility] did not have any beds available. PROGRESS NOTE 08/25/18 I reviewed recent notes and patient continues to demonstrate stable improvement in focus, memory and orientation. He is spending more time out of his room and there have been no reports of wandering behaviors x4 days. His periods of confusion and disorientation appear to have resolved. He is also demonstrating more initiative in engaging and communicating with others but still generally keeps to himself. Patient likes to watch tv in the dayroom. Patient is still depressed with constricted affect but fairly friendly and cooperative upon approach. He remains nice, more related and talkative during interviews. He remembers his current location, month, year and circumstances correctly again this morning. Patient denied any perceptual disturbance the 4-5 days In general, patient intermittently endorsed either visual or auditory hallucinations to me and the staff during this hospitalization. I have never observed him responding to internal stimuli. Patient has been much more compliant with CPAP the last 5 nights and reports he is sleeping better during those nights however patient refused it last night indicating it makes his throat too dry. Snoring also seems to be improving. Presently he denies any new concerns, discomfort or pain except for chronic knee and back pain, unchanged. His behavior is becoming more predictable. Patient has been in control without aggression or agitation and will be stable for discharge on Sunday. Aware and agreeable to continued seroquel taper and d/c by his outpatient provider after discharge. DISCHARGE NOTE 08/26/18 I interviewed patient again this morning to assess continued stability for discharge. Patient is alert and well-oriented to month, year and circumstances. Eye contact is good. Patient feels improved and denies any suicidal thoughts or thoughts to harm others. Affect is calm and appropriately reactive and much more related and focused. Patient denies hallucinations and is not responding to internal stimuli. He denies paranoia. Thought process is clear and much improved since admission. There have been no further incidents of wandering behaviors for almost a week. Patient feels comfortable with discharge today and denies any new concerns. Denies acute discomfort or pain. Tolerating medications and denies any issues with them. Delusions and paranoia were not elicited on day of discharge - Final Diagnosis (DSM 5) Condition upon Discharge: STABLE DSM 5: Schizoaffective disorder Alcohol use disorder Rule out alcohol withdrawal Marijuana abuse Disposition: HOME/ ROUTINE Follow-up Treatment Plan: PLEASE REFER TO SW NOTE FOR DISPOSITION INFORMATION PATIENT WAS GIVEN AN RX (14 DAYS + 1RF) FOR THE FOLLOWING MEDICATIONS * Abilify 30 mg po daily, * Seroquel i 200 mg HS * Buspar 10 mg po TID * Lexapro 20 mg po daily * Neurontin 300 mg po TID * Trazodone 200 mg po HS * Folic Acide 1 mg po daily * Thiamine 100 mg po daily * Patient reports smoking 1/2 pk of cigarettes per day. Counseling provided, patient refused Nicotine patch. * Patient also refused medications to help with alcohol cessation (such as naltrexone) Laboratory Results - last 24 hr 08/16/18 08/16/18 08/17/18 08:00 08:00 07:00 WBC 8.3 RBC 5.18 Hgb 13.0 L Hct 43.2 MCV 83.4 MCH 25.1 MCHC 30.1 L RDW 13.3 Plt Count 285 MPV 10.3 Sodium Potassium Chloride Carbon Dioxide Anion Gap BUN Creatinine Est GFR ( Amer) Est GFR (Non-Af Amer) Random Glucose Calcium Total Bilirubin AST ALT Alkaline Phosphatase Total Protein Albumin Globulin Albumin/Globulin Ratio TSH 3rd Generation 1.32 RPR Nonreactive 08/17/18 07:00 WBC RBC Hgb Hct MCV MCH MCHC RDW Plt Count MPV Sodium 142 Potassium 3.8 Chloride 106 Carbon Dioxide 28 Anion Gap 11 BUN 9 Creatinine 1.0 Est GFR ( Amer) > 60 Est GFR (Non-Af Amer) > 60 Random Glucose 117 H Calcium 8.9 Total Bilirubin 0.4 AST 19 ALT 8 Alkaline Phosphatase 76 Total Protein 7.6 Albumin 4.1 Globulin 3.6 Albumin/Globulin Ratio 1.1 TSH 3rd Generation RPR - Smoking Cessation Smoking Cessation Medication prescribed: No Reason for not providing: Counseling provided, patient refused - Antipsychotic Medications Pt discharged on 2 or more routine antipsychotic medications: No
[2018-08-26] MEDS: Multivitamin With Minerals Tab PO SCH (09:31)
--- NOTE | 2018-08-26 11:49 | PN ---
DATE: 08/26/2018 SUBJECTIVE: He tells me he is being discharged today. He is going to go home on Abilify, Ativan, BuSpar, Desyrel, Flomax, folic acid, Lexapro, Lipitor, Motrin, Neurontin, Norvasc, Protonix, Seroquel, Thera-Tabs, Ventolin, and vitamin B1. We discussed not drinking any alcohol anymore. He is going to follow up with Pulmonary for the obstructive sleep apnea. He will take his medications and follow up with his primary care doctor. PHYSICAL EXAMINATION: VITAL SIGNS: He has 97.4 temperature, 84 pulse, 120/82 blood pressure, 19 respiratory rate. HEENT: His head is atraumatic, normocephalic. HEART: Regular rate. LUNGS: Decreased breath sounds, but clear. ABDOMEN: Soft, obese. EXTREMITIES: No edema. ASSESSMENT AND PLAN: Hopefully, he will do very well and stay out of hospital, take his medications, and no more alcohol. Noel Florentino DO
--- NOTE | 2018-08-26 12:30 | PN ---
DATE: 08/26/2018 PULMONARY PROGRESS NOTE REFERRING PHYSICIAN: Khadra Dudley MD SUBJECTIVE: The patient is seen this morning lying in bed. No acute distress. States he did not wear CPAP machine last night because it did not have humidification on it. I have scheduled for discharge home today. No headache, rhinitis, cough, shortness of breath, chest pain, abdominal pain, nausea, vomiting, diarrhea, leg pain or leg swelling reported. OBJECTIVE: GENERAL: No acute distress. VITAL SIGNS: Blood pressure 128/82, pulse 84, and temperature 97.4. HEENT: Moist mucous membranes. Crowded airway. Mallampati score of 4. NECK: Supple. No JVD. LUNGS: Fair airflow bilaterally. CARDIOVASCULAR: S1 and S2. ABDOMEN: Soft and nontender. No distention. No organomegaly. EXTREMITIES: No bilateral lower extremity edema. NEUROLOGIC: Awake, alert and verbal. Following commands. MEDICATIONS: Reviewed. Ventolin HFA 2 puffs every 4 hours p.r.n., Norvasc 10 mg daily, Abilify 30 mg daily, Lipitor 20 mg daily, BuSpar 10 mg 3 times a day, Lexapro 20 mg daily, folic acid 1 mg daily, Neurontin 300 mg 3 times a day, Motrin 800 mg every 8 hours p.r.n., Ativan 2 mg p.o. every 6 hours p.r.n., multivitamins with minerals one tablet daily, Protonix 40 mg at bedtime, Seroquel 200 mg at bedtime, Flomax 0.4 mg at bedtime, vitamin B1 of 100 mg daily, trazodone 100 mg at bedtime p.r.n. and trazodone 100 mg at bedtime. LABORATORY DATA: Reviewed. No new labs. IMPRESSION AND PLAN: Obstructive sleep apnea syndrome, hypertension, schizoaffective disorder, hyperlipidemia, history of suicidal ideation. Pulmonary point of view continue continuous positive airway pressure use at bedtime, sleep apnea precaution, head of bed elevated at 45 degrees, careful with sedation, fall precautions. We recommend the patient have full pulmonary function test as outpatient to evaluate for chronic lung disease. We recommend the patient followup for sleep apnea syndrome as outpatient. This patient was seen and examined with Dr. Zamora. Discussed assessment and plan as described above. This patient was seen and examined with Edwin Maciel nurse practitioner. Discussed assessment and plan as described above. Thank you for this consult and we will follow with you. Edwin Maciel APN Faraz Zamora MD
== END 2018-08-26 16:14 | disposition home or self-care (01) | DRG 430 ==
LOC: ED 01:19 → ERH 01:23 → PSYC 01:52
PROVIDERS: ADMIT Psychiatry & Neurology Psychiatry; ATTEND Psychiatry & Neurology Psychiatry
DX: F25.9 Schizoaffective disorder, unspecified (principal); F11.20 Opioid dependence, uncomplicated; R45.851 Suicidal ideations; E78.00 Pure hypercholesterolemia, unspecified; E78.1 Pure hyperglyceridemia; E78.5 Hyperlipidemia, unspecified; F12.10 Cannabis abuse, uncomplicated; F17.210 Nicotine dependence, cigarettes, uncomplicated; F31.9 Bipolar disorder, unspecified; F41.9 Anxiety disorder, unspecified; G47.33 Obstructive sleep apnea (adult) (pediatric); G89.29 Other chronic pain; I10 Essential (primary) hypertension; N40.0 Benign prostatic hyperplasia without lower urinary tract symptoms; Z79.899 Other long term (current) drug therapy; Z90.49 Acquired absence of other specified parts of digestive tract; Z91.14 Patient's other noncompliance with medication regimen; Z91.19 Patient's noncompliance with other medical treatment and regimen; F10.10 Alcohol abuse, uncomplicated